=== PATIENT | male | born 1935 | race Caucasian/White ===

== ENCOUNTER → 2016-10-07 | Outpatient (REF) | payer OTHER, MEDICAID ==
[~2016-10-07] MED LIST: /ATOR40TA; /ATOR40TA PO; /CIPR75TA; /TAMS4CA; /WARF25TA; /WARF5TA; ASPI1TAB PO; ASPI325T PO; ASPI81TA60 PO; ASPI81TA83; ASPI81TA85 PO; ATEN25TA; ATOR40TA PO; BABY81CH; CARV25TA PO; CARV3.12 PO; CARV6.25 PO; CIPR500T19; CIPR500T89 PO; COUM1TAB17 PO; COUM2.5T11 PO; DIGO0.12 PO; DIGO0.126; DIGO0.126 OR; FLAG500T; LANO0.1211; LEVA250T; LISI-542 PO; NAME5TAB13 PO; NITR0.4S; NITR4TASL SL; OXYC1TAB23 PO; PERC5TAB6 PO; PLAV75TA2 OR; PRIN5TAB; PRIN5TAB PO; PROS5TAB; TENO50TA; TYLE650T25 PO; XARE15TA PO; XARE20TA PO; ZOLO100T PO
[2016-10-07 19:48] LABS: BASO % 0.4 % (0.0-1.0); EOS # 0.1 K/mm3 (0.0-0.50); EOS % 1.7 % (0.0-3.0); LARGE UNSTAINED CELL % 0.7 % (0.0-4.0); LYMPH # 0.9 K/mm3 (1.5-4.5); LYMPH % 17.2 % (24.0-44.0); MEAN CORPUSCULAR HEMOGLOBIN 30.3 pg (27.0-33.0); MEAN CORPUSCULAR HGB CONC 31.8 g/dl (32.0-36.5); MEAN CORPUSCULAR VOLUME 95.2 fl (80.0-96.0); MONO # 0.4 K/mm3 (0.0-0.8); MONO % 7.5 % (0.0-5.0); NEUTROPHILS # 3.5 K/mm3 (1.8-7.7); NEUTROPHILS % 72.5 % (36.0-66.0); PLATELET COUNT, AUTOMATED 145 k/mm3 (150-450); WHITE BLOOD COUNT 4.9 K/mm3 (4.0-10.0)
[2016-10-07 20:18] LABS: ALBUMIN/GLOBULIN RATIO 1.43 (1.00-1.93); ALKALINE PHOSPHATASE 100 U/L (45-117); ALT/SGPT 13 U/L (12-78); ANION GAP 8 MEQ/L (8-16); AST/SGOT 10 U/L (15-37); BILIRUBIN,TOTAL 0.7 MG/DL (0.2-1.0); BLOOD UREA NITROGEN 17 MG/DL (7-18); CALCIUM LEVEL 8.7 MG/DL (8.8-10.2); CARBON DIOXIDE LEVEL 26 MEQ/L (21-32); CHLORIDE LEVEL 109 MEQ/L (98-107); CHOLESTEROL LEVEL 118 MG/DL (<200); CREATININE FOR GFR 1.14 MG/DL (0.70-1.30); GLOMERULAR FILTRATION RATE > 60.0 (>35); GLUCOSE, FASTING 105 MG/DL (83-110); POTASSIUM SERUM 4.6 MEQ/L (3.5-5.1); SODIUM LEVEL 143 MEQ/L (136-145); TOTAL PROTEIN 6.8 GM/DL (6.4-8.2); TRIGLYCERIDES LEVEL 88 MG/DL (<150)
== END ==
LOC: M LABDRAWC 16:31
PROVIDERS: ATTEND Family Medicine
DX: I25.10 Atherosclerotic heart disease of native coronary artery without angina pectoris (principal); I48.2 Chronic atrial fibrillation; E78.00 Pure hypercholesterolemia, unspecified

== ENCOUNTER → 2016-10-07 | Outpatient (REF) | payer OTHER, MEDICAID ==
[2016-10-07 19:57] LABS: MEAN CORPUSCULAR HEMOGLOBIN 30.1 pg (27.0-33.0); MEAN CORPUSCULAR HGB CONC 31.5 g/dl (32.0-36.5); MEAN CORPUSCULAR VOLUME 95.4 fl (80.0-96.0); WHITE BLOOD COUNT 5.1 K/mm3 (4.0-10.0)
[2016-10-07 20:13] LABS: ALBUMIN 4.1 GM/DL (3.2-5.2); ALBUMIN/GLOBULIN RATIO 1.41 (1.00-1.93); ALKALINE PHOSPHATASE 101 U/L (45-117); ALT/SGPT 12 U/L (12-78); ANION GAP 7 MEQ/L (8-16); AST/SGOT 9 U/L (15-37); BILIRUBIN,TOTAL 0.7 MG/DL (0.2-1.0); BLOOD UREA NITROGEN 17 MG/DL (7-18); CARBON DIOXIDE LEVEL 27 MEQ/L (21-32); CHLORIDE LEVEL 109 MEQ/L (98-107); CHOLESTEROL LEVEL 120 MG/DL (<200); CREATININE FOR GFR 1.14 MG/DL (0.70-1.30); GLOMERULAR FILTRATION RATE > 60.0 (>35); GLUCOSE, FASTING 105 MG/DL (83-110); POTASSIUM SERUM 4.8 MEQ/L (3.5-5.1); SODIUM LEVEL 143 MEQ/L (136-145); TRIGLYCERIDES LEVEL 91 MG/DL (<150)
== END ==
LOC: M LABDRAWC 16:33
PROVIDERS: ATTEND Physician Assistant
DX: I25.10 Atherosclerotic heart disease of native coronary artery without angina pectoris (principal); I48.2 Chronic atrial fibrillation; E78.00 Pure hypercholesterolemia, unspecified; Z85.46 Personal history of malignant neoplasm of prostate

== ENCOUNTER → 2016-10-07 | Outpatient (REF) | payer OTHER, MEDICAID | LOC: M SFHCCLAY 09:39 | PROVIDERS: ATTEND Nurse Practitioner Women's Health | DX: Z85.46 Personal history of malignant neoplasm of prostate (principal) ==

== ENCOUNTER 2017-02-27 08:17 | Observation (INO) | payer OTHER, MEDICAID ==
[~2017-02-27] VITALS: Ht 175.3 cm; Wt 76.6 kg
[~2017-02-27 08:17] MED LIST changes: -ATOR40TA PO; +ATOR40TA75 PO; +CIPR-249 PO; -CIPR500T89 PO; -COUM2.5T11 PO; +COUM2.5T17 PO; +PERC5TAB12 PO; -PERC5TAB6 PO
[2017-02-27] MEDS ORDERED: NAME5TAB13 PO (08:32)
[2017-02-27 09:11] LABS: BASO % 0.5 % (0.0-1.0); LARGE UNSTAINED CELL # 0.1 K/mm3 (0.0-0.4); LARGE UNSTAINED CELL % 1.4 % (0.0-4.0); LYMPH # 0.9 K/mm3 (1.5-4.5); LYMPH % 19.8 % (24.0-44.0); MEAN CORPUSCULAR HEMOGLOBIN 30.7 pg (27.0-33.0); MEAN CORPUSCULAR HGB CONC 32.4 g/dl (32.0-36.5); MEAN CORPUSCULAR VOLUME 94.9 fl (80.0-96.0); MONO # 0.3 K/mm3 (0.0-0.8); MONO % 7.6 % (0.0-5.0); NEUTROPHILS # 3.2 K/mm3 (1.8-7.7); NEUTROPHILS % 69.6 % (36.0-66.0); PLATELET COUNT, AUTOMATED 143 k/mm3 (150-450); RED CELL DISTRIBUTION WIDTH 14.2 % (11.5-14.5); WHITE BLOOD COUNT 4.6 K/mm3 (4.0-10.0)
[2017-02-27 09:37] LABS: ALBUMIN 3.9 GM/DL (3.2-5.2); ALBUMIN/GLOBULIN RATIO 1.26 (1.00-1.93); BILIRUBIN,DIRECT 0.2 MG/DL (0.0-0.2); BILIRUBIN,TOTAL 0.7 MG/DL (0.2-1.0); CALCIUM LEVEL 8.5 MG/DL (8.8-10.2); CREATININE FOR GFR 1.26 MG/DL (0.70-1.30); GLOMERULAR FILTRATION RATE 58.6 (>35); POTASSIUM SERUM 4.5 MEQ/L (3.5-5.1)
[2017-02-27 09:52] LABS: INR 3.3
[2017-02-27] MEDS ORDERED: ASPI81TA85 PO (10:21)
[2017-02-27] MEDS ORDERED: ALBU17IN INH (10:27)
[2017-02-27] MEDS ORDERED: TRIA0.5O TOP (10:27)
[2017-02-27] MEDS ORDERED: CLEA6.5D OU (10:27)
--- NOTE | 2017-02-27 12:22 | REP ---
CT ABDOMEN AND PELVIS WITHOUT IV CONTRAST: CT abdomen and pelvis performed without oral or IV contrast. Sagittal and coronal reconstruction images are performed. Visualized lungs bases demonstrate interstitial fibrotic change. The liver, spleen, adrenals, and pancreas are unremarkable. There is a cyst in the lower pole of each kidney. Intrarenal calculus in the lower pole of the right renal collecting system measures 6 mm in diameter. There is a 5 mm stone in the proximal right ureter with mild right hydronephrosis. IVC filter is noted. There are moderate atherosclerotic calcifications of the abdominal aorta without aneurysm. I see no adenopathy. There is no free air or free fluid. I see no bowel wall thickening. There is a left lower quadrant osteotomy again seen with bowel loops extending into a parastomal hernia as on prior study. I see no pelvic mass. There is a small left inguinal hernia containing fat. There is a Munguia catheter in the urinary bladder which contains air and a tiny amount of fluid. There are two small abdominal wall defects in the midline with fat protruding into the abdominal wall. IMPRESSION: Right ureteral calculus proximally causes mild right hydronephrosis. Intrarenal calculus right kidney. Cyst lower pole or each kidney. No other acute finding. Signed by Audi Oneill MD 02/27/2017 03:15 P
[2017-02-27] MEDS: NS 1,000 ML IV SCH (18:08)
[2017-02-27] MEDS ORDERED: ACETAMINOPHEN TAB 650MG DOSE (2X325MG) PO PRN (18:15)
[2017-02-27] MEDS ORDERED: ALBUTEROL 90 MCG/ACT 8GM HFA INHALER INH PRN (18:15)
[2017-02-27] MEDS ORDERED: PERCOCET 5MG/325MG TAB PO PRN (18:15)
[2017-02-27] MEDS ORDERED: ONDANSETRON 4MG/2ML VIAL (J2405) IV PRN (18:15)
[2017-02-27] MEDS ORDERED: ONDANSETRON 4 MG TAB (S0181) PO PRN (18:15)
[2017-02-27 22:00] VITALS: BP 123/82
--- NOTE | 2017-02-27 22:00 | HPEPDOC ---
Medical History and Physical Date of Admission Feb 27, 2017 at 18:08 History and Physical HISTORY AND PHYSICAL Date of admission: 02/27/2017 PCP: Dr. 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 The patient states that he had been having pure blood from his penis for several days. He denies any recent urologic procedures, as well as any pain with urination, abdominal pain, or back pain. In the emergency department, imaging revealed a right ureteral calculus of 5 mm that was causing mild right hydronephrosis, as well as an intrarenal right calculus. Dr. Jameson saw the patient in the emergency department, and advised Dr. Ulrich that the patient did not need any urologic intervention. The ER had placed a Moon catheter, and his urine was already beginning to clear with placement of the Moon catheter. Of note, the patient takes both aspirin and xarelto. The family is a little unclear on the details of his medical history, but it appears that most likely the Xarelto is for his atrial fibrillation, as he only has a history of one DVT that I am able to tell, and does have an IVC filter in place. The is quite insistent that they have not had any trouble with medications, and it is impossible that he would've taken more aspirin or Xarelto than he should have. Of note, his INR was found to be greater than 3. Past medical history: extensive urologic history including staghorn calculus on the right status post percutaneous nephroureteral stent, BPH status post TURP , prostate cancer status post radiation and resection, history of urinary retention, history of hematuria after cystoscopy, prior cystitis, atrial fibrillation, history of DVT with IVC filter in place, history of colon cancer status post colectomy with colostomy bag in situ since 1994, hypertension, CAD and history of NH status post stent, hyperlipidemia, dementia and depression Past surgical history: Right percutaneous nephroureteral stent in 2014, IVC filter placement, colectomy with resultant colostomy bag in 1994, TURP in 2008, prostate resection, incisional hernia repair, cardiac stent Family history: He reports multiple types of cancer in his immediate family Social history: The patient currently resides with his . He quit smoking more than 20 years ago and does not use any alcohol or drugs. Allergies: No known drug allergies Review of systems: General: Negative for fever and chills Eyes: Negative for vision changes and ocular discharge ENT: Negative for sore throat and nose bleed Cardiovascular: Negative for chest pain and palpitations Respiratory: Positive for chronic cough and chronic shortness of breath GI: Negative for nausea, vomiting, diarrhea, abdominal pain, constipation Musculoskeletal: Positive for chronic back pain Skin: Negative for rash Neuro: Positive for chronic headache, negative for numbness and tingling Psych: Negative for depression and suicidal ideation Endocrine: Negative for polyuria : Negative for dysuria Heme: Positive for hematuria Home meds: See below Physical exam: Vital signs: Vital Sign - Last 24 Hours 02/27/17 02/27/17 02/27/17 02/27/17 08:21 08:52 09:59 10:02 Temp 96.5 Pulse 86 84 Resp 16 B/P (MAP) 107/69 (82) 143/92 (109) Pulse Ox 97 98 O2 Delivery Room Air 02/27/17 02/27/17 02/27/17 02/27/17 10:14 10:17 10:29 10:32 Pulse 82 84 B/P (MAP) 134/78 (96) 153/82 (105) Pulse Ox 98 97 02/27/17 02/27/17 02/27/17 02/27/17 10:44 10:47 10:59 11:02 Pulse 88 86 B/P (MAP) 143/73 (96) 134/75 (94) Pulse Ox 97 96 02/27/17 02/27/17 02/27/17 02/27/17 11:14 11:17 11:32 11:47 Pulse 82 82 90 B/P (MAP) 142/67 (92) Pulse Ox 97 97 97 02/27/17 02/27/17 02/27/17 02/27/17 11:59 12:02 12:14 12:17 Pulse 84 82 B/P (MAP) 133/73 (93) 136/85 (102) Pulse Ox 97 97 02/27/17 02/27/17 02/27/17 02/27/17 12:29 12:32 12:44 12:47 Pulse 80 88 B/P (MAP) 138/91 (107) 134/73 (93) Pulse Ox 98 97 02/27/17 02/27/17 02/27/17 02/27/17 12:59 13:02 13:14 13:17 Pulse 80 84 B/P (MAP) 134/86 (102) 137/95 (109) Pulse Ox 97 97 02/27/17 02/27/17 02/27/17 02/27/17 13:29 13:32 13:44 13:47 Pulse 82 86 B/P (MAP) 137/84 (101) 141/90 (107) Pulse Ox 97 97 02/27/17 02/27/17 02/27/17 02/27/17 13:59 14:02 14:17 14:29 Temp 97.6 Pulse 80 84 Resp 20 B/P (MAP) 148/88 (108) 141/89 (106) Pulse Ox 98 98 02/27/17 02/27/17 02/27/17 02/27/17 14:32 14:44 14:47 14:59 Pulse 82 82 B/P (MAP) 153/76 (101) 144/71 (95) Pulse Ox 97 97 02/27/17 02/27/17 02/27/17 02/27/17 15:02 15:14 15:17 15:29 Pulse 86 82 B/P (MAP) 145/87 (106) 158/90 (112) Pulse Ox 97 97 02/27/17 02/27/17 02/27/17 02/27/17 15:32 15:44 15:46 15:47 Pulse 84 84 B/P (MAP) 148/101 (117) 146/102 (117) Pulse Ox 97 97 02/27/17 02/27/17 02/27/17 02/27/17 15:59 16:02 16:14 16:17 Pulse 88 86 B/P (MAP) 157/97 (117) 158/104 (122) Pulse Ox 96 97 802/27/17 02/27/17 16:29 16:32 19:48 Temp 97.7 Pulse 82 80 Resp 17 B/P (MAP) 158/73 (101) 139/80 (99) Pulse Ox 96 96 O2 Delivery Room Air Gen.: awake, alert, no acute distress Eyes: Extraocular movements intact, normal sclera ENT: Moist mucous membranes Cardiovascular: irregularly irregular Lungs: clear to auscultation bilaterally, no rales, rhonchi, or wheeze Abdomen: Soft, NT/ND, normal BS, no CVA TTP : moon in place with hematuria but not catarino blood Musculoskeletal: normal range of motion Extremities: No peripheral edema Neuro: alert and oriented 3, normal speech, no focal deficits Psych: Normal mood with congruent affect Labs and radiology: See below Hemoglobin 13.3 UA shows blood CMP is unremarkable INR 3.[address] of the abdomen and pelvis shows right ureteral calculus of 5 mm in size with mild right hydronephrosis and an intrarenal right calculus Assessment and plan: 81-year-old male with extensive urologic history including 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 1. Hematuria: I suspect this is secondary to the right ureteral calculus in conjunction with the fact that the patient is on both aspirin and Xarelto. At this time, we will hold his aspirin and Xarelto, and continue the Moon catheter. It appears that his urine is already starting to clear. The patient was evaluated by Dr. Jameson in the emergency department who advised Dr. Ulrich that the patient did not require any urologic procedure or further urologic care. If his hematuria does not resolve, we will certainly call Dr. Jameson again. At this time, his vital signs and hemoglobin are stable, but we will monitor these closely. 2. Ureteral calculus and intrarenal calculus: The patient's ureteral calculus is 5 mm in size, which he should be able to pass. He is not currently experiencing any pain, and his only symptom is the hematuria. We will continue IV fluids, and we'll make pain control available as needed. Again, should the patient develop any further complications, we will not hesitate to call Dr. Jameson again. 3. Chronic kidney disease stage II: The patient's baseline creatinine appears to be in the low ones, and he seems to be at baseline at this time. We will continue to monitor closely given his urologic issues. 4. A. fib: Continue home beta álvaro. We are currently holding the patient's Xarelto and aspirin given his hematuria. 5. History of DVT: The family reports to me that he has only ever had one episode of blood clot in the past. They do confirm that he currently has an IVC filter in place. Given these reports, and his current hematuria, we are holding his home xarelto. 6. Hypertension: Blood pressure is currently well controlled. We will continue his home beta álvaro. 7. CAD and history of NH status post stent, hyperlipidemia: Continue home beta álvaro and statin. We are currently holding his home aspirin given the hematuria. 8. Differential and depression: Continue home Namenda and Zoloft. DVT prophylaxis: SCDs Dispo: placed in observation on the service of Dr. George CODE STATUS: DNR/DNI Vital Signs Vital Signs Date Time Temp Pulse Resp B/P (MAP) Pulse Ox O2 Delivery O2 Flow Rate FiO2 02/27/17 19:48 97.7 80 17 139/80 (99) 96 Room Air Laboratory Data Labs 24H Laboratory Tests 2 02/27/17 08:48: White Blood Count 4.6, Red Blood Count 4.31, Hemoglobin 13.3L, Hematocrit 40.9L , Mean Corpuscular Volume 94.9, Mean Corpuscular Hemoglobin 30.7, Mean Corpuscular Hemoglobin Concent 32.4, Red Cell Distribution Width 14.2, Platelet Count 143L, Neutrophils (%) (Auto) 69.6H, Lymphocytes (%) (Auto) 19.8L, Monocytes (%) (Auto) 7.6H, Eosinophils (%) (Auto) 1.0, Basophils (%) (Auto) 0.5 , Neutrophils # (Auto) 3.2, Lymphocytes # (Auto) 0.9L, Monocytes # (Auto) 0.3, Eosinophils # (Auto) 0.0, Basophils # (Auto) 0.0, Large Unclassified Cells % 1.4 , Large Unclassified Cells # 0.1, Anion Gap 8, Glomerular Filtration Rate 58.6, Calcium Level 8.5L, Aspartate Amino Transf (AST/SGOT) 9L, Alanine Aminotransferase (ALT/SGPT) 14, Alkaline Phosphatase 107, Total Bilirubin 0.7, Direct Bilirubin 0.2, Total Protein 7.0, Albumin 3.9, Albumin/Globulin Ratio 1.26, Lipase 199 02/27/17 08:49: Urine Appearance CLOUDYH, Urine Color REDH, Urine pH 6.0, Urine Specific [place] 1.019, Urine Protein 2+H, Urine Glucose (UA) NEGATIVE, Urine Ketones NEGATIVE, Urine Urobilinogen 0.2, Urine Bilirubin NEGATIVE, Urine Leukocyte Esterase NEGATIVE, Urine Blood 2+H, Urine Nitrite NEGATIVE, Urine WBC (Auto) 8H , Urine RBC (Auto) TNTCH, Urine Hyaline Casts (Auto) 0, Urine Bacteria (Auto) NEGATIVE, Urine Squamous Epithelial Cells 0, Urine Sperm (Auto) 02/27/17 09:20: Prothrombin Time 35.1H, Prothromb Time International Ratio 3.30 CBC/BMP Laboratory Tests 02/27/17 08:48 Red Blood Count 4.31, Mean Corpuscular Volume 94.9, Mean Corpuscular Hemoglobin 30.7, Mean Corpuscular Hemoglobin Concent 32.4, Red Cell Distribution Width 14.2 , Neutrophils (%) (Auto) 69.6 H, Lymphocytes (%) (Auto) 19.8 L, Monocytes (%) ( Auto) 7.6 H, Eosinophils (%) (Auto) 1.0, Basophils (%) (Auto) 0.5, Neutrophils # (Auto) 3.2, Lymphocytes # (Auto) 0.9 L, Monocytes # (Auto) 0.3, Eosinophils # (Auto) 0.0, Basophils # (Auto) 0.0 Microbiology Microbiology 02/27/17 Urine Culture, Received Pending Home Medications Scheduled Aspirin (Aspir-81) 81 Mg Tab, 81 MG PO DAILY Atorvastatin Calcium (Atorvastatin Calcium) 40 Mg Tab, 40 MG PO QHS Carvedilol (Carvedilol) 25 Mg Tab, 25 MG PO BID Memantine (Namenda) 5 Mg Tab, 10 MG PO BID Rivaroxaban (Xarelto) 20 Mg Tab, 20 MG PO DAILY Sertraline Hcl (Zoloft) 100 Mg Tab, 100 MG PO QHS Triamcinolone Acetonide (Triamcinolone Acetonide) 0.5 % Oin, 1 DOSE TOP DAILYPRN TO HANDS Scheduled PRN (Clear Eyes Natural Tears 5-6 mg/ml) 1 Delroy Delroy, 1 DELROY OU QID PRN for DRY EYES Albuterol Sulfate (Ventolin Hfa) 200 Puff/8 Gm Aers, 2 PUFF INH Q4H PRN for SOB/ WHEEZING Nitroglycerin (Nitrostat) 0.4 Mg Subl, 0.4 MG SL PRN PRN for CHEST PAIN Allergies Coded Allergies: No Known Drug Allergy (Verified Allergy, Unknown, 10/05/12) KAYLYN HDEZ Feb 27, 2017 22:00
[2017-02-27] MEDS: ATORVASTATIN 20 MG TAB PO SCH (22:25)
[2017-02-27] MEDS: MEMANTINE 5MG TABLET (NAMENDA) PO SCH (22:25)
[2017-02-27] MEDS: CARVedilol 12.5 MG TAB PO SCH (22:26)
[2017-02-27] MEDS: SERTRALINE 100 MG TAB PO SCH (22:26)
[2017-02-28 06:00] VITALS: BP 132/82
[2017-02-28 06:33] LABS: BASO % 0.3 % (0.0-1.0); EOS # 0.1 K/mm3 (0.0-0.50); EOS % 0.9 % (0.0-3.0); LYMPH # 0.9 K/mm3 (1.5-4.5); LYMPH % 13.9 % (24.0-44.0); MEAN CORPUSCULAR HEMOGLOBIN 31.4 pg (27.0-33.0); MEAN CORPUSCULAR HGB CONC 33.6 g/dl (32.0-36.5); MEAN CORPUSCULAR VOLUME 93.4 fl (80.0-96.0); MONO # 0.4 K/mm3 (0.0-0.8); MONO % 6.1 % (0.0-5.0); NEUTROPHILS # 4.7 K/mm3 (1.8-7.7); NEUTROPHILS % 77.7 % (36.0-66.0); PLATELET COUNT, AUTOMATED 121 k/mm3 (150-450); RED CELL DISTRIBUTION WIDTH 14.2 % (11.5-14.5); WHITE BLOOD COUNT 6.1 K/mm3 (4.0-10.0)
[2017-02-28 06:34] LABS: LARGE UNSTAINED CELL # 0.1 K/mm3 (0.0-0.4)
[2017-02-28 06:38] LABS: INR 1.58
[2017-02-28 06:48] LABS: ANION GAP 8 MEQ/L (8-16); BLOOD UREA NITROGEN 15 MG/DL (7-18); CALCIUM LEVEL 8.6 MG/DL (8.8-10.2); CARBON DIOXIDE LEVEL 26 MEQ/L (21-32); CHLORIDE LEVEL 109 MEQ/L (98-107); GLOMERULAR FILTRATION RATE > 60.0 (>35); GLUCOSE, FASTING 98 MG/DL (83-110); MAGNESIUM LEVEL 2.1 MG/DL (1.8-2.4); POTASSIUM SERUM 4.5 MEQ/L (3.5-5.1); SODIUM LEVEL 143 MEQ/L (136-145)
[2017-02-28] MEDS: NS 1,000 ML IV SCH (07:43)
[2017-02-28] MEDS: MEMANTINE 5MG TABLET (NAMENDA) PO SCH ×2 (08:59→21:45)
[2017-02-28] MEDS: CARVedilol 12.5 MG TAB PO SCH ×2 (08:59→21:46)
--- NOTE | 2017-02-28 10:22 | ECGEPIP ---
Stationary ECG Study [facility] - ED Test Date: 2017-02-27 Pat Name: CLARISA MOORE Department: Room: - Gender: M Glass Technician: rubén : [id number] Requested By: Kimberley Mendieta Order Number: [id number] Reading MD: Kimberley Mendieta Measurements Intervals [place] Rate: 85 P: TN: 0 QRS: -13 QRSD: 101 T: -10 QT: 380 QTc: 454 Interpretive Statements ATRIAL FIBRILLATION LOW QRS VOLTAGE IN EXTREMITY LEADS MINIMAL ST DEPRESSION ABNORMAL RHYTHM ECG DECREASED RATE 05/18/16 Electronically Signed On 02-28-2017 10:21:43 EDT by Kimberley Mendieta
[2017-02-28 14:00] VITALS: BP 103/57
--- NOTE | 2017-02-28 16:07 | IPNPDOC ---
Subjective Date Seen The patient was seen on 02/28/17. Subjective Chief Complaint/HPI Patient seen and examined at the bedside. Reports that he is still having blood in his Munguia catheter, but notes it is significantly clearer than it was before coming to the hospital. Denies any other acute complaints at this time. Objective Physical Examination General Exam: Positive: Alert, Cooperative, No Acute Distress ENT Exam: Positive: Atraumatic, Mucous membr. moist/pink Neck Exam: Negative: JVD Chest Exam: Positive: Clear to auscultation, Normal air movement Heart Exam: Positive: Rate Normal, Normal S1, Normal S2 Abdomen Exam: Positive: Soft, Negative: Tenderness Extremity Exam: Negative: Tenderness, Swelling Other physical findings Munguia Catheter draining bright, fruit-punch colored urine Assessment /Plan Plan/VTE VTE Prophylaxis Ordered?: Yes Plan/Urinary Catheter Reason for insertion/continuin: Acute obstruct/retention Plan Hematuria likely 2/2 Right Ureteral Calculus Also compounded by Aspirin and Xarelto use--these medications have been held since admission Munguia Catheter still draining bright, punch colored urine--however the patient states that this has significantly cleared compared to before Hgb and blood pressure stable here Urology consulted in the ER-->No urologic intervention indicated at this time We will cont to monitor the patient's H&H serially If the patient continues to have bloody output, we will reach out to Urology once again Right Sided Ureteral calculus and intrarenal calculus Mild Right Hydronephrosis noted, Renal function stable Patient comfortable and without acute pain No intervention indicated at this time as per Urology WBC wnl, afebrile The patient will be treated symptomatically for now We will cont to monitor the patient Chronic kidney disease stage II Serum Cr at baseline Atrial Fibrillation, stable Rate controlled with beta álvaro. ASA, Xarelto on hold 2/2 above Hx of CAD, CT s/p Stent placement Cont Coreg, Statin ASA on hold 2/2 above History of DVT, with Hx of IVC Filter Xarelto on hold 2/2 above Hypertension, controlled. Cont Coreg Dyslipidemia Continue statin Depression Cont Zoloft Hx of Dementia Cont Namenda DVT Prophylaxis SCD/TEDs VS, I&O, 24H, Fishbone Vital Signs/I&O Vital Signs Date Time Temp Pulse Resp B/P (MAP) Pulse Ox O2 Delivery O2 Flow Rate FiO2 8/25/17 08:59 77 132/82 02/28/17 06:00 96.5 18 97 Room Air I&O- Last 24 Hours up to 6 AM 02/28/17 06:00 Intake Total 800 ml Output Total 2025 ml Balance -1225 ml Laboratory Data 24H LABS Laboratory Tests 2 02/28/17 05:57: White Blood Count 6.1, Red Blood Count 4.02L, Hemoglobin 12.6L, Hematocrit 37.6L , Mean Corpuscular Volume 93.4, Mean Corpuscular Hemoglobin 31.4, Mean Corpuscular Hemoglobin Concent 33.6, Red Cell Distribution Width 14.2, Platelet Count 121L, Neutrophils (%) (Auto) 77.7H, Lymphocytes (%) (Auto) 13.9L, Monocytes (%) (Auto) 6.1H, Eosinophils (%) (Auto) 0.9, Basophils (%) (Auto) 0.3 , Neutrophils # (Auto) 4.7, Lymphocytes # (Auto) 0.9L, Monocytes # (Auto) 0.4, Eosinophils # (Auto) 0.1, Basophils # (Auto) 0.0, Large Unclassified Cells % 1.0 , Large Unclassified Cells # 0.1, Prothrombin Time 19.3H, Prothromb Time International Ratio 1.58, Anion Gap 8, Glomerular Filtration Rate > 60.0, Blood Urea Nitrogen 15, Creatinine 1.00, Sodium Level 143, Potassium Level 4.5, Chloride Level 109H, Carbon Dioxide Level 26, Calcium Level 8.6L, Magnesium Level 2.1 CBC/BMP Laboratory Tests 02/28/17 05:57 Red Blood Count 4.02 L, Mean Corpuscular Volume 93.4, Mean Corpuscular Hemoglobin 31.4, Mean Corpuscular Hemoglobin Concent 33.6, Red Cell Distribution Width 14.2, Neutrophils (%) (Auto) 77.7 H, Lymphocytes (%) (Auto) 13.9 L, Monocytes (%) (Auto) 6.1 H, Eosinophils (%) (Auto) 0.9, Basophils (%) ( Auto) 0.3, Neutrophils # (Auto) 4.7, Lymphocytes # (Auto) 0.9 L, Monocytes # ( Auto) 0.4, Eosinophils # (Auto) 0.1, Basophils # (Auto) 0.0, Calcium Level 8.6 L Microbiology Microbiology 02/27/17 Urine Culture - Final, Complete MARK CONSTANTINO MD Feb 28, 2017 16:07
[2017-02-28] MEDS: ATORVASTATIN 20 MG TAB PO SCH (21:45)
[2017-02-28] MEDS: SERTRALINE 100 MG TAB PO SCH (21:46)
--- NOTE | 2017-02-28 22:04 | CR ---
DATE OF CONSULTATION: 02/27/2017 [employer] MANAGER: Kimberley Fishman, emergency department [facility]. REASON FOR CONSULTATION: Hematuria, plus right hydronephrosis on 5 mm proximal ureteral stone. HISTORY OF PRESENT ILLNESS: This is an 81-year-old male patient that has come to the emergency department at [facility] due to hematuria this morning. The patient has no flank pain, no abdominal pain. For this reason a Munguia catheter was inserted, which actually brought catarino gross hematuria. The patient is on Xarelto. His INR is above 3. He has a history of atrial fibrillation and he has an inferior vena cava (IVC) filter also. CT briceno of the abdomen and pelvis was ordered, which actually confirmed a 5 mm stone in the proximal right ureter with mild right hydronephrosis. No stranding. No signs of infection. He has a cyst in the lower pole of each kidney also. An intrarenal calculus of right kidney also. Of note, the patient has a past medical history of prostate cancer treated with XRT. He also has a history of colon cancer treated with APR and colostomy. He also is on CIC every 8 hours due to neurogenic bladder after the APR. His last PSA was at 0.039 grams per milliliter back in October 2016. He has a history of having had two PCNLs done in the right kidney for staghorn stones and he has been doing well until this moment in time in which CT scan actually found incidental finding of 5 mm stone and mild right hydronephrosis and hematuria possibly due to elevated INR and Xarelto. The patient takes Xarelto due to atrial fibrillation. Has a history of deep vein thrombosis (DVT) and he has inferior vena cava (IVC) filter. PHYSICAL EXAMINATION: He is awake, oriented times three. He is not in any pain at all. Flank percussion is negative. Abdominal palpation is negative for any pain. Munguia catheter in good position draining hematuric urine. Testicles are within normal limits. No pain. No masses. IMPRESSION AND PLAN: This is a patient with anticoagulation therapy due to atrial fibrillation on Xarelto. His INR is above 3. He has gross hematuria possibly due to a 5 mm stone. He has mild hydronephrosis on the right kidney. PLAN: At this moment in time the patient has no pain. No signs and symptoms of infection. For this reason for the stone, we will actively do a medical expulsive therapy with Flomax 0.4 mg one tablet a day for 30 days. Percocet 5/325 mg one every 8 hours to 6 hours as needed for pain if needed. Increase water intake to 2 to 3 liters a day. He will followup at [facility] in three to four weeks with a CT scan of abdomen and pelvis noncontrast. Since the patient has increased INR on Xarelto, he should stop the Xarelto anticoagulation medication. The recommendation is that he should be hospitalized by the hospitalist service until he gets hydrated and the anticoagulation therapy weans off from the body and his urine is completely clear. He will remain with the Munguia catheter since he has neurogenic bladder and he is on CIC every [address] the Munguia catheter to gravity. He will need antibiotic prophylaxis such as Ciprofloxacin 500 mg twice a day while he is on Munguia catheter. Thank you very much. We will follow the patient in the hospital when he is admitted. AMY
[2017-03-01 06:00] VITALS: BP 118/74
[2017-03-01 06:01] LABS: BASO % 0.3 % (0.0-1.0); EOS # 0.1 K/mm3 (0.0-0.50); EOS % 1.3 % (0.0-3.0); LARGE UNSTAINED CELL # 0.1 K/mm3 (0.0-0.4); LARGE UNSTAINED CELL % 2.2 % (0.0-4.0); LYMPH # 1.2 K/mm3 (1.5-4.5); LYMPH % 18.7 % (24.0-44.0); MEAN CORPUSCULAR HEMOGLOBIN 30.4 pg (27.0-33.0); MEAN CORPUSCULAR HGB CONC 32.4 g/dl (32.0-36.5); MEAN CORPUSCULAR VOLUME 93.9 fl (80.0-96.0); MONO # 0.4 K/mm3 (0.0-0.8); MONO % 6.1 % (0.0-5.0); NEUTROPHILS # 4.1 K/mm3 (1.8-7.7); NEUTROPHILS % 71.4 % (36.0-66.0); PLATELET COUNT, AUTOMATED 122 k/mm3 (150-450); RED CELL DISTRIBUTION WIDTH 14.3 % (11.5-14.5); WHITE BLOOD COUNT 5.8 K/mm3 (4.0-10.0)
[2017-03-01 06:12] LABS: INR 1.22
[2017-03-01 06:18] LABS: ANION GAP 9 MEQ/L (8-16); BLOOD UREA NITROGEN 13 MG/DL (7-18); CALCIUM LEVEL 8.4 MG/DL (8.8-10.2); CARBON DIOXIDE LEVEL 26 MEQ/L (21-32); CHLORIDE LEVEL 111 MEQ/L (98-107); CREATININE FOR GFR 0.98 MG/DL (0.70-1.30); GLOMERULAR FILTRATION RATE > 60.0 (>35); GLUCOSE, FASTING 108 MG/DL (83-110); MAGNESIUM LEVEL 2.1 MG/DL (1.8-2.4); POTASSIUM SERUM 4.3 MEQ/L (3.5-5.1); SODIUM LEVEL 146 MEQ/L (136-145)
[2017-03-01] MEDS: MEMANTINE 5MG TABLET (NAMENDA) PO SCH (08:33)
[2017-03-01 08:34] VITALS: BP 116/64
[2017-03-01] MEDS: CARVedilol 12.5 MG TAB PO SCH (08:34)
--- NOTE | 2017-03-01 09:45 | IPNPDOC ---
Assessment/Plan Date Seen The patient was seen on 03/01/17. Plan/VTE VTE Prophylaxis Ordered?: Yes Plan/Urinary Catheter Reason for insertion/continuin: Acute obstruct/retention Subjective Review oF Systems Chief Complaint The patient is a 81-year-old male admitted with a reason for visit of hematuria ; coagulopathy; right ureter 5mm stone; RLP 6mm stone; NGB (urinary retention); AFIB; IVC filter; CaP s/p XRT; colon cancer s/p APR/colostomy. Munguia clear. Xeralto/ASA held (02/27/17). Asymptomatic. Tolerate po. Comfortable. 86, 18, 116/64, 97.9f. Abdo: Benign. Munguia clear. Urinalysis (02/27/17) rbc+2, pH 6.0. Urine culture (02/27/17) negative. () Hg 11.7, wbc 5.8, Cr .98, INR 1.2. CT (02/27/17) w/o IV right ureter 5mm stone; RLP 6mm stone; BLP B1 cysts; IVC filter. A: Above. P: CIC 4-6/day to keep catheterized volumes <300cc per catheterization. Flomax. Cipro. Strain urine. Cardiology clearance prior to elective Urologic intervention. If dc home, f/u Trino KUB/OV 1 week. Objective Physical Examination Heart Exam: Positive: Rate Normal, Normal S1, Normal S2 Vital Signs/I&O Vital Signs Date Time Temp Pulse Resp B/P (MAP) Pulse Ox O2 Delivery O2 Flow Rate FiO2 03/01/17 08:34 86 116/64 03/01/17 06:00 97.9 18 96 Room Air I&O- Last 24 Hours up to 6 AM 03/01/17 06:00 Intake Total 2860 ml Output Total 1500 ml Balance 1360 ml Laboratory Data Labs 24H Laboratory Tests 2 03/01/17 05:41: White Blood Count 5.8, Red Blood Count 3.87L, Hemoglobin 11.7L, Hematocrit 36.3L , Mean Corpuscular Volume 93.9, Mean Corpuscular Hemoglobin 30.4, Mean Corpuscular Hemoglobin Concent 32.4, Red Cell Distribution Width 14.3, Platelet Count 122L, Neutrophils (%) (Auto) 71.4H, Lymphocytes (%) (Auto) 18.7L, Monocytes (%) (Auto) 6.1H, Eosinophils (%) (Auto) 1.3, Basophils (%) (Auto) 0.3 , Neutrophils # (Auto) 4.1, Lymphocytes # (Auto) 1.2L, Monocytes # (Auto) 0.4, Eosinophils # (Auto) 0.1, Basophils # (Auto) 0.0, Large Unclassified Cells % 2.2 , Large Unclassified Cells # 0.1, Prothrombin Time 15.6H, Prothromb Time International Ratio 1.22, Anion Gap 9, Glomerular Filtration Rate > 60.0, Blood Urea Nitrogen 13, Creatinine 0.98, Sodium Level 146H, Potassium Level 4.3, Chloride Level 111H, Carbon Dioxide Level 26, Calcium Level 8.4L, Magnesium Level 2.1 CBC/BMP Laboratory Tests 02/28/17 16:27 03/01/17 05:41 Red Blood Count 3.87 L, Mean Corpuscular Volume 93.9, Mean Corpuscular Hemoglobin 30.4, Mean Corpuscular Hemoglobin Concent 32.4, Red Cell Distribution Width 14.3, Neutrophils (%) (Auto) 71.4 H, Lymphocytes (%) (Auto) 18.7 L, Monocytes (%) (Auto) 6.1 H, Eosinophils (%) (Auto) 1.3, Basophils (%) ( Auto) 0.3, Neutrophils # (Auto) 4.1, Lymphocytes # (Auto) 1.2 L, Monocytes # ( Auto) 0.4, Eosinophils # (Auto) 0.1, Basophils # (Auto) 0.0, Calcium Level 8.4 L Microbiology Microbiology 02/27/17 Urine Culture - Final, Complete HUNTER ANGLIN MD Mar 01, 2017 09:45
[2017-03-01] MEDS ORDERED: XARE15TA PO (11:29)
[2017-03-01] MEDS ORDERED: CIPR-249 PO (11:34)
[2017-03-01 14:00] VITALS: BP 124/80
--- NOTE | 2017-03-01 16:24 | DS.PDOC ---
Discharge Summary General Date of Admission Feb 27, 2017 at 18:08 Date of Discharge 03/01/17 Specialist/Consultants Involve Dr. Jameson, Dr. Juan of Urology. Dr. Cheng of Cardiology Discharge Summary PROCEDURES PERFORMED DURING STAY: None. ADMITTING/DISCHARGE DIAGNOSES: Hematuria likely 2/2 Right Ureteral Calculus Right Sided Ureteral calculus and intrarenal calculus Chronic kidney disease stage II Atrial Fibrillation Hx of CAD, [place] s/p Stent placement History of DVT, with Hx of IVC Filter COMPLICATIONS/CHIEF COMPLAINT: Hematuria,Renal Calculus. HISTORY OF PRESENT ILLNESS: . 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 The patient reported that he was having bright red blood in his urine for several days prior to his presentation to the ER. He denied any trauma, pain with urination, fevers, or any flank pain. In the ER, the patient had imaging which revealed a right ureteral calculus a 5 mm that was causing mild right hydronephrosis as well as an intrarenal right calculus. The patient was admitted to the hospitalist service for further evaluation and management. Urology was also consulted. During hospitalization, the patient's Xarelto and aspirin were held. Over the next 48 hours the patient's urine significantly cleared to a normal yellow/ clear color. The patient was seen by urology and there were no indications for any urologic intervention at this time. The patient's hemoglobin and blood pressure has remained stable here. I did discuss anticoagulation with the patient's offender employment specialist, Dr. Cheng. He has recommended that we discontinue the patient's aspirin. In addition, the patient's Xarelto dose has been decreased to 15 mg daily from 20. I did discuss these findings and medication changes with the patient's and daughter, as well as the patient extensively at bedside. They have verbalized understanding of the findings and changes. I've advised the patient and his family to closely monitor for any more signs of hematuria, or for any signs of fever, flank pain, dysuria. Should the patient have a return of hematuria he has been advised to return to the ER for further evaluation and management. I asked the patient to follow-up with his primary care physician within one week, urology in 2 weeks, and cardiology in 2 weeks. All questions were answered to the patient and family's satisfaction. DISCHARGE MEDICATIONS: Please see below. ALLERGIES: Please see below. PHYSICAL EXAMINATION ON DISCHARGE: VITAL SIGNS: Please see below. General Exam: Positive: Alert, Cooperative, No Acute Distress ENT Exam: Positive: Atraumatic, Mucous membr. moist/pink Neck Exam: Negative: JVD Chest Exam: Positive: Clear to auscultation, Normal air movement Heart Exam: Positive: Rate Normal, Normal S1, Normal S2 Abdomen Exam: Positive: Soft, Negative: Tenderness Extremity Exam: Negative: Tenderness, Swelling Other physical findings Munguia Catheter draining yellow/clear colored urine LABORATORY DATA: Please see below. IMAGING: CT ABDOMEN AND PELVIS WITHOUT IV CONTRAST: CT abdomen and pelvis performed without oral or IV contrast. Sagittal and coronal reconstruction images are performed. Visualized lungs bases demonstrate interstitial fibrotic change. The liver, spleen, adrenals, and pancreas are unremarkable. There is a cyst in the lower pole of each kidney. Intrarenal calculus in the lower pole of the right renal collecting system measures 6 mm in diameter. There is a 5 mm stone in the proximal right ureter with mild right hydronephrosis. IVC filter is noted. There are moderate atherosclerotic calcifications of the abdominal aorta without aneurysm. I see no adenopathy. There is no free air or free fluid. I see no bowel wall thickening. There is a left lower quadrant osteotomy again seen with bowel loops extending into a parastomal hernia as on prior study. I see no pelvic mass. There is a small left inguinal hernia containing fat. There is a Munguia catheter in the urinary bladder which contains air and a tiny amount of fluid. There are two small abdominal wall defects in the midline with fat protruding into the abdominal wall. IMPRESSION: Right ureteral calculus proximally causes mild right hydronephrosis. Intrarenal calculus right kidney. Cyst lower pole or each kidney. No other acute finding. PROGNOSIS: Fair ACTIVITY: As tolerated. DIET: . 2 g low-sodium diet DISCHARGE PLAN: DISPOSITION: . Home DISCHARGE INSTRUCTIONS: 1. . Follow up with primary care physician within one week, urology 2 weeks, cardiology 2 weeks 2. . Complete course of antibiotic 3. . Return to the ER for any acute emergencies as discussed DISCHARGE CONDITION: Stable. TIME SPENT ON DISCHARGE: Greater than 30 minutes. Vital Signs/I&Os Vital Signs Date Time Temp Pulse Resp B/P (MAP) Pulse Ox O2 Delivery O2 Flow Rate FiO2 03/01/17 14:00 98.2 87 18 124/80 (95) 94 Room Air I&O- Last 24 Hours up to 6 AM 03/01/17 05:59 Intake Total 2380 ml Output Total 1800 ml Balance 580 ml Laboratory Data Labs 24H Laboratory Tests 2 03/01/17 05:41: White Blood Count 5.8, Red Blood Count 3.87L, Hemoglobin 11.7L, Hematocrit 36.3L , Mean Corpuscular Volume 93.9, Mean Corpuscular Hemoglobin 30.4, Mean Corpuscular Hemoglobin Concent 32.4, Red Cell Distribution Width 14.3, Platelet Count 122L, Neutrophils (%) (Auto) 71.4H, Lymphocytes (%) (Auto) 18.7L, Monocytes (%) (Auto) 6.1H, Eosinophils (%) (Auto) 1.3, Basophils (%) (Auto) 0.3 , Neutrophils # (Auto) 4.1, Lymphocytes # (Auto) 1.2L, Monocytes # (Auto) 0.4, Eosinophils # (Auto) 0.1, Basophils # (Auto) 0.0, Large Unclassified Cells % 2.2 , Large Unclassified Cells # 0.1, Prothrombin Time 15.6H, Prothromb Time International Ratio 1.22, Anion Gap 9, Glomerular Filtration Rate > 60.0, Blood Urea Nitrogen 13, Creatinine 0.98, Sodium Level 146H, Potassium Level 4.3, Chloride Level 111H, Carbon Dioxide Level 26, Calcium Level 8.4L, Magnesium Level 2.1 CBC/BMP Laboratory Tests 02/28/17 16:27 03/01/17 05:41 Red Blood Count 3.87 L, Mean Corpuscular Volume 93.9, Mean Corpuscular Hemoglobin 30.4, Mean Corpuscular Hemoglobin Concent 32.4, Red Cell Distribution Width 14.3, Neutrophils (%) (Auto) 71.4 H, Lymphocytes (%) (Auto) 18.7 L, Monocytes (%) (Auto) 6.1 H, Eosinophils (%) (Auto) 1.3, Basophils (%) ( Auto) 0.3, Neutrophils # (Auto) 4.1, Lymphocytes # (Auto) 1.2 L, Monocytes # ( Auto) 0.4, Eosinophils # (Auto) 0.1, Basophils # (Auto) 0.0, Calcium Level 8.4 L Microbiology Microbiology 02/27/17 Urine Culture - Final, Complete Discharge Medications Scheduled Atorvastatin Calcium (Atorvastatin Calcium) 40 Mg Tab, 40 MG PO QHS, (Reported) Carvedilol (Carvedilol) 25 Mg Tab, 25 MG PO BID, (Reported) Ciprofloxacin HCl (Cipro) 500 Mg Tab, 500 MG PO BID Memantine (Namenda) 5 Mg Tab, 10 MG PO BID, (Reported) Rivaroxaban (Xarelto) 15 Mg Tab, 15 MG PO DAILY Sertraline Hcl (Zoloft) 100 Mg Tab, 100 MG PO QHS, (Reported) Triamcinolone Acetonide (Triamcinolone Acetonide) 0.5 % Oin, 1 DOSE TOP DAILYPRN , (Reported) TO HANDS Scheduled PRN (Clear Eyes Natural Tears 5-6 mg/ml) 1 Marline Marline, 1 MARLINE OU QID PRN for DRY EYES, (Reported) Albuterol Sulfate (Ventolin Hfa) 200 Puff/8 Gm Aers, 2 PUFF INH Q4H PRN for SOB/ WHEEZING, (Reported) Nitroglycerin (Nitrostat) 0.4 Mg Subl, 0.4 MG SL PRN PRN for CHEST PAIN, ( Reported) Allergies Coded Allergies: No Known Drug Allergy (Verified Allergy, Unknown, 10/05/12) MARK CONSTANTINO MD Mar 01, 2017 16:24
[2017-04-10] MEDS ORDERED: LISI-542 PO (13:39)
== END 2017-03-01 17:56 | disposition home or self-care (01) ==
LOC: M ED 08:17 → M ED INP 18:08 → M MSPAV 19:57
PROVIDERS: ADMIT Hospitalist; ATTEND Internal Medicine
DX: R31.9 Hematuria, unspecified (principal); N20.1 Calculus of ureter; N18.2 Chronic kidney disease, stage 2 (mild); I48.91 Unspecified atrial fibrillation; I25.10 Atherosclerotic heart disease of native coronary artery without angina pectoris; Z98.61 Coronary angioplasty status; Z86.79 Personal history of other diseases of the circulatory system; N40.0 Benign prostatic hyperplasia without lower urinary tract symptoms; Z92.3 Personal history of irradiation; Z85.46 Personal history of malignant neoplasm of prostate; Z85.038 Personal history of other malignant neoplasm of large intestine; Z79.01 Long term (current) use of anticoagulants; Z79.82 Long term (current) use of aspirin; Z79.899 Other long term (current) drug therapy; Z87.891 Personal history of nicotine dependence; F32.9 Major depressive disorder, single episode, unspecified
CPT/HCPCS: 36415; 74176; 80048; 80076; 81001; 83690; 83735; 85014; 85018; 85025; 85610; 86850; 86900; 86901; 87086; 93005; 93041; 99285; G0378

== ENCOUNTER → 2017-03-07 | Outpatient (REF) | payer OTHER, MEDICAID ==
[~2017-03-07] MED LIST changes: +ALBU17IN INH; +CLEA6.5D OU; +TRIA0.5O TOP
== END ==
LOC: M SMT 08:34
PROVIDERS: ATTEND Nurse Practitioner Women's Health
DX: N13.2 Hydronephrosis with renal and ureteral calculous obstruction (principal)

== ENCOUNTER → 2017-03-07 | Outpatient (CLI) | payer OTHER, MEDICAID ==
[2017-03-07 13:56] LABS: MEAN CORPUSCULAR HEMOGLOBIN 31.3 pg (27.0-33.0); MEAN CORPUSCULAR VOLUME 94.8 fl (80.0-96.0); RED CELL DISTRIBUTION WIDTH 13.9 % (11.5-14.5); WHITE BLOOD COUNT 5.7 K/mm3 (4.0-10.0)
[2017-03-07 14:06] LABS: CALCIUM LEVEL 9.1 MG/DL (8.8-10.2); CREATININE FOR GFR 1.33 MG/DL (0.70-1.30); GLOMERULAR FILTRATION RATE 55.1 (>35); POTASSIUM SERUM 4.6 MEQ/L (3.5-5.1)
--- NOTE | 2017-03-07 15:37 | REP ---
KUB, ONE VIEW: HISTORY: Ureteral stone. COMPARISON: 06/18/2015 Calcification is present overlying the right kidney consistent with nephrolithiasis. An 8 mm calcification is present along the right lateral aspect of the L4 vertebral body. This corresponds to the ureteral calculus on other recent CT abdomen examination. An IVC filter is present. Surgical clips are present in the pelvis. IMPRESSION: 1. Right nephrolithiasis. 2. There is an 8 mm calcification along the right lateral aspect of the L4 vertebral body likely corresponding to the ureteral calculus seen in the recent CT examination. Signed by Gerardo Swenson MD 03/07/2017 03:39 P
== END ==
LOC: M SMT 08:48
PROVIDERS: ATTEND Nurse Practitioner Women's Health
DX: N13.2 Hydronephrosis with renal and ureteral calculous obstruction (principal)
CPT/HCPCS: 36415; 74000; 80048; 81001; 85027; 87086; G0463

== ENCOUNTER → 2017-04-08 | Outpatient (CLI) | payer OTHER, MEDICAID ==
--- NOTE | 2017-04-08 10:23 | REP ---
PA and lateral chest: Comparison is 05/18/2016. The lung alvarado are clear and unchanged. Cardiac size is upper normal, unchanged. The arabella, mediastinum, and bony thorax are unremarkable. Impression: Negative PA and lateral chest. There is no interval change.
== END ==
LOC: M CLY 09:00
PROVIDERS: ATTEND Nurse Practitioner Women's Health
DX: Z01.812 Encounter for preprocedural laboratory examination (principal); N13.2 Hydronephrosis with renal and ureteral calculous obstruction; I25.10 Atherosclerotic heart disease of native coronary artery without angina pectoris; F02.80 Dementia in other diseases classified elsewhere, unspecified severity, without behavioral disturbance, psychotic disturbance, mood disturbance, and anxiety

== ENCOUNTER → 2017-04-08 | Outpatient (REF) | payer OTHER, MEDICAID ==
[2017-04-08 11:39] LABS: BASO % 0.3 % (0.0-1.0); EOS # 0.1 10^3/uL (0.0-0.50); EOS % 0.7 % (0.0-3.0); IMMATURE GRANULOCYTE % 0.3 % (0-0); LYMPH % 14.2 % (24.0-44.0); MEAN CORPUSCULAR HEMOGLOBIN 30.4 pg (27.0-33.0); MEAN CORPUSCULAR HGB CONC 31.9 g/dl (32.0-36.5); MEAN CORPUSCULAR VOLUME 95.5 fl (80.0-96.0); MONO # 0.7 10^3/uL (0.0-0.8); MONO % 9.5 % (0.0-5.0); NEUTROPHILS # 5.4 10^3/uL (1.8-7.7); PLATELET COUNT, AUTOMATED 165 10^3/uL (150-450); RED CELL DISTRIBUTION WIDTH 13.7 % (11.5-14.5); WHITE BLOOD COUNT 7.2 10^3/uL (4.0-10.0)
[2017-04-08 11:40] LABS: ADD MANUAL DIFFER NO; DIFF SLIDE NUMBER 214
[2017-04-08 12:33] LABS: FOLATE 6.7 NG/ML
[2017-04-08 22:32] LABS: ALBUMIN 3.6 GM/DL (3.2-5.2); ALBUMIN/GLOBULIN RATIO 1.24 (1.00-1.93); BILIRUBIN,TOTAL 0.8 MG/DL (0.2-1.0); CALCIUM LEVEL 8.3 MG/DL (8.8-10.2); CREATININE FOR GFR 1.51 MG/DL (0.70-1.30); GLOMERULAR FILTRATION RATE 47.6 (>35); POTASSIUM SERUM 4.2 MEQ/L (3.5-5.1); TOTAL PROTEIN 6.5 GM/DL (6.4-8.2)
== END ==
LOC: M LABDRAWC 11:19
PROVIDERS: ATTEND Family Medicine
DX: I25.10 Atherosclerotic heart disease of native coronary artery without angina pectoris (principal); F02.80 Dementia in other diseases classified elsewhere, unspecified severity, without behavioral disturbance, psychotic disturbance, mood disturbance, and anxiety

== ENCOUNTER 2017-04-16 09:40 | Day surgery (SDC) | payer OTHER, MEDICAID ==
[~2017-04-16] VITALS: Ht 165.1 cm; Wt 74.8 kg
[2017-04-16] MEDS ORDERED: LR 1,000 ML IV SCH ×2 (10:00→12:00)
[2017-04-16] MEDS ORDERED: CONRAY-60 60% 50ML VIAL (Q9961) As Ordered ONE (10:11)
[2017-04-16] MEDS ORDERED: LIDOCAINE 2% INJ 100 MG/5 ML SDV (FOR ANES.) As Ordered ONE (11:01)
[2017-04-16] MEDS ORDERED: PROPOFOL 200 MG/20 ML VIAL As Ordered ONE (11:01)
[2017-04-16] MEDS ORDERED: PHENYLephrine HCL 500 MCG/5 ML (100MCG/ML) SYRINGE (J2370) As Ordered ONE (11:01)
[2017-04-16] MEDS ORDERED: fentaNYL 100 MCG/2 ML INJECTION (J3010) As Ordered ONE (11:02)
[2017-04-16] MEDS ORDERED: ONDANSETRON 4MG/2ML VIAL (J2405) As Ordered ONE (11:03)
[2017-04-16] MEDS ORDERED: METOCLOPRAMIDE INJ 10MG/2ML VIAL (J2765) IV PRN (12:00)
[2017-04-16] MEDS ORDERED: ONDANSETRON 4MG/2ML VIAL (J2405) IV PRN (12:00)
[2017-04-16] MEDS ORDERED: NORCO, ANEXSIA 5/325MG TABLET (HYDROcodone/ACETAMINOPHEN) PO PRN (12:00)
[2017-04-16] MEDS ORDERED: ACETAMINOPHEN TAB 650MG DOSE (2X325MG) PO PRN (12:00)
[2017-04-16] MEDS ORDERED: fentaNYL 100 MCG/2 ML INJECTION (J3010) IV PRN (12:00)
[2017-04-16 13:30] VITALS: BP 115/81
--- NOTE | 2017-04-16 19:49 | RO ---
DATE OF PROCEDURE: 04/16/2017 PREPROCEDURE DIAGNOSIS: Right ureteral and kidney stones. POSTPROCEDURE DIAGNOSIS: Right ureteral and kidney stones. PROCEDURE: Cystoscopy, right ureteroscopy with basket extraction of stones, right retrograde pyelogram with intraoperative interpretation of images, right ureteral stent placement. SURGEON: Dr. Jesse Parker ELECTROPLATING LABORER: None. ANESTHESIA: General. OPERATIVE INDICATIONS: This is an 81-year-old male who was found to have an obstructing 6 mm proximal right ureteral stone as well as nonobstructing right intrarenal stones. He was brought to the operating room today for treatment. DESCRIPTION OF PROCEDURE: The patient was brought to the operating room where general anesthesia was induced. Prophylactic antibiotics were infused. He was then placed in dorsal lithotomy position, prepped and draped in the usual sterile fashion. A rigid cystoscope was inserted into the urethral meatus and advanced into the bladder. A wire was then advanced up the right collecting system. The cystoscope was then removed and the wire was utilized to advance the ureteral access sheath up to the collecting system. The stylette was then removed and the secured to serve as a safety wire. I then went up in the right collecting system with the flexible ureteroscope and in the proximal ureter a 6 mm stone was seen. The stone was grasped with a basket and removed. I then examined the kidney and looked in each calyx thoroughly. Only one calyx contained stones and there were approximately 3 stones in the calyx. The largest stone was about 4 mm in size. All the stones were then removed with the basket. After confirming that all of the stones had been removed from the right kidney and ureter a retrograde pyelogram was performed and was negative for extravasation but notable for mild to moderate right hydronephrosis. At this point, the ureteroscope was withdrawn along with the access sheath and no additional stones were seen in the ureter. I then utilized the wire to advance a #6-Yakut x 22-32 cm JJ ureteral stent up into the right collecting system. The wire was then removed and there were adequate curls of the stent in the right renal pelvis and in the bladder. The bladder was then emptied of all fluids. This marked the conclusion of the procedure. The patient was then taken out of dorsal lithotomy position, awaken from anesthesia and transported to the recovery room in stable condition. ESTIMATED BLOOD LOSS: 0 mL COMPLICATIONS: None. SPECIMENS: Kidney stones. PLAN: The patient will followup in clinic in a few weeks for stent removal. AMY
--- NOTE | 2017-04-16 23:10 | REP ---
RETROGRADE PYELOGRAM: Three views. HISTORY: Right-sided nephrolithiasis. 14 seconds of fluoroscopy time is reported. FINDINGS: A sequence of three last image hold fluoroscopic spot radiographs of the abdomen document right ureteral cannulation, contrast injection, and double pigtail ureteral stent placement. Signed by Akira Chatman MD 04/17/2017 11:56 A
== END 2017-04-16 13:39 | disposition home or self-care (01) ==
LOC: M SDC 09:40
PROVIDERS: ATTEND Urology
DX: N20.2 Calculus of kidney with calculus of ureter (principal); I11.9 Hypertensive heart disease without heart failure; I48.2 Chronic atrial fibrillation; I25.10 Atherosclerotic heart disease of native coronary artery without angina pectoris; I25.2 Old myocardial infarction; R94.31 Abnormal electrocardiogram [ECG] [EKG]; E78.00 Pure hypercholesterolemia, unspecified; G47.33 Obstructive sleep apnea (adult) (pediatric); M12.9 Arthropathy, unspecified; R21 Rash and other nonspecific skin eruption; F32.9 Major depressive disorder, single episode, unspecified; R31.9 Hematuria, unspecified; Z79.899 Other long term (current) drug therapy; Z79.01 Long term (current) use of anticoagulants; Z95.5 Presence of coronary angioplasty implant and graft; Z86.718 Personal history of other venous thrombosis and embolism; Z92.21 Personal history of antineoplastic chemotherapy; Z92.3 Personal history of irradiation; Z85.46 Personal history of malignant neoplasm of prostate; Z85.038 Personal history of other malignant neoplasm of large intestine; Z87.891 Personal history of nicotine dependence; Z96.1 Presence of intraocular lens; I08.0 Rheumatic disorders of both mitral and aortic valves
CPT/HCPCS: 52332; 52352; 74420; 82360; 88300; C1894; C2617; J0690; J2370; J2405; J3010; Q9961

== ENCOUNTER → 2017-04-29 | Outpatient (CLI) | payer OTHER, MEDICAID | LOC: M SMT 15:37 | PROVIDERS: ATTEND Urology | DX: Z85.46 Personal history of malignant neoplasm of prostate (principal) ==

== ENCOUNTER 2017-07-07 12:33 | Emergency (ER) | payer OTHER, MEDICAID ==
[2017-07-07 13:45] LABS: BASO % 0.4 % (0.0-1.0); EOS % 0.4 % (0.0-3.0); HEMATOCRIT 36.4 % (42.0-52.0); HEMOGLOBIN 11.5 g/dl (14.0-18.0); IMMATURE GRANULOCYTE % 0.4 % (0-0); LYMPH % 18.3 % (24.0-44.0); MEAN CORPUSCULAR HEMOGLOBIN 29.9 pg (27.0-33.0); MEAN CORPUSCULAR HGB CONC 31.6 g/dl (32.0-36.5); MEAN CORPUSCULAR VOLUME 94.5 fl (80.0-96.0); MONO # 0.5 10^3/uL (0.0-0.8); NEUTROPHILS % 71.5 % (36.0-66.0); PLATELET COUNT, AUTOMATED 122 10^3/uL (150-450); RED BLOOD COUNT 3.85 10^6/uL (4.30-6.10); RED CELL DISTRIBUTION WIDTH 13.9 % (11.5-14.5); WHITE BLOOD COUNT 5.6 10^3/uL (4.0-10.0)
[2017-07-07 14:01] LABS: INR 2.59; PROTHROMBIN TIME 28.8 SECONDS (12.4-14.5)
[2017-07-07 14:11] LABS: ALBUMIN 3.8 GM/DL (3.2-5.2); ALBUMIN/GLOBULIN RATIO 1.31 (1.00-1.93); ALKALINE PHOSPHATASE 101 U/L (45-117); ALT/SGPT 11 U/L (12-78); ANION GAP 9 MEQ/L (8-16); AST/SGOT 7 U/L (7-37); BILIRUBIN,TOTAL 0.9 MG/DL (0.2-1.0); BLOOD UREA NITROGEN 19 MG/DL (7-18); CALCIUM LEVEL 8.3 MG/DL (8.8-10.2); CARBON DIOXIDE LEVEL 27 MEQ/L (21-32); CHLORIDE LEVEL 108 MEQ/L (98-107); GLOMERULAR FILTRATION RATE 56.4 (>35); GLUCOSE, FASTING 92 MG/DL (83-110); POTASSIUM SERUM 4.3 MEQ/L (3.5-5.1); SODIUM LEVEL 144 MEQ/L (136-145); TOTAL PROTEIN 6.7 GM/DL (6.4-8.2)
[2017-07-07 14:17] LABS: APPEARANCE, URINE MANUAL TURBID (CLEAR); COLOR, URINE MANUAL RED (YELLOW); SPECIFIC GRAVITY,URINE MANUAL 1.022 (1.002-1.035)
[2017-07-07 14:18] LABS: BILIRUBIN, URINE MANUAL NEGATIVE (NEGATIVE); BLOOD URINE MANUAL RFX POSITIVE (NEGATIVE); GLUCOSE, URINE (UA) MANUAL NEGATIVE (NEGATIVE); KETONE, URINE MANUAL NEGATIVE (NEGATIVE); MICROSCOPIC INDICATED? RFX YES (NO); NITRITE, URINE MANUAL RFX POSITIVE (NEGATIVE); PROTEIN, URINE MANUAL 3+ mg/dL (NEGATIVE); UROBILINOGEN, URINE MANUAL NORMAL (NORMAL)
[2017-07-07 14:25] LABS: BACTERIA, URINE LARGE AMOUNT; HYALINE CAST, URINE NONE SEEN /lpf (0-1); MICROSCOPIC EXAM UNSPUN; RBC, URINE TNTC /hpf (0-3); SQUAMOUS EPITHELIAL CELL URINE SMALL AMOUNT /hpf (SMALL AMT); TRIPLE PHOSPHATE CRYSTAL,URINE MOD AMOUNT /hpf; WBC, URINE MAN RFX 20-30 /hpf (0-3)
[2017-07-07] MEDS: CEFTRIAXONE SOD 1 GM in APPROPRIATE DILUENT 1 EA IV (16:45)
== END 2017-07-07 17:27 | disposition home or self-care (01) ==
LOC: M ED 12:33
DX: N39.0 Urinary tract infection, site not specified (principal); R31.9 Hematuria, unspecified; I10 Essential (primary) hypertension; J44.9 Chronic obstructive pulmonary disease, unspecified; I48.91 Unspecified atrial fibrillation; I25.2 Old myocardial infarction; Z87.442 Personal history of urinary calculi; Z85.46 Personal history of malignant neoplasm of prostate; Z79.899 Other long term (current) drug therapy; Z79.01 Long term (current) use of anticoagulants
CPT/HCPCS: 71046

== ENCOUNTER → 2017-07-31 | Outpatient (REF) | payer OTHER, MEDICAID ==
[2017-07-31 15:14] LABS: APPEARANCE, URINE HAZY (CLEAR); BACTERIA, URINE AUTO NEGATIVE (NEGATIVE); BILIRUBIN, URINE AUTO NEGATIVE (NEGATIVE); BLOOD, URINE BLOOD 3+ (NEGATIVE); CALCIUM OXALATE CRYSTALS SMALL; COLOR, URINE AMBER (YELLOW); GLUCOSE, URINE (UA) AUTO NEGATIVE (NEGATIVE); KETONE, URINE AUTO NEGATIVE (NEGATIVE); LEUKOCYTE ESTERASE, URINE AUTO TRACE (NEGATIVE); MUCUS, URINE SMALL (NEGATIVE); NITRITE, URINE AUTO NEGATIVE (NEGATIVE); PROTEIN, URINE AUTO 1+ mg/dL (NEGATIVE); RBC, URINE AUTO TNTC /HPF (0-3); SPECIFIC GRAVITY URINE AUTO 1.021 (1.002-1.035); SQUAMOUS EPITHELIAL CELL UR AU 1 /HPF (0-6); WBC, URINE AUTO 24 /HPF (0-3)
== END ==
LOC: M SMT 13:25
DX: R31.0 Gross hematuria (principal); N39.0 Urinary tract infection, site not specified
CPT/HCPCS: 81001

== ENCOUNTER → 2017-09-11 | Outpatient (REF) | payer OTHER, MEDICAID ==
[2017-09-11 11:12] LABS: HEMATOCRIT 38.8 % (42.0-52.0); HEMOGLOBIN 11.9 g/dl (14.0-18.0); MEAN CORPUSCULAR HEMOGLOBIN 27.8 pg (27.0-33.0); MEAN CORPUSCULAR HGB CONC 30.7 g/dl (32.0-36.5); MEAN CORPUSCULAR VOLUME 90.7 fl (80.0-96.0); PLATELET COUNT, AUTOMATED 163 10^3/uL (150-450); RED BLOOD COUNT 4.28 10^6/uL (4.30-6.10); RED CELL DISTRIBUTION WIDTH 14.2 % (11.5-14.5); WHITE BLOOD COUNT 4.9 10^3/uL (4.0-10.0)
[2017-09-11 11:33] LABS: ALBUMIN/GLOBULIN RATIO 1.25 (1.00-1.93); ALKALINE PHOSPHATASE 112 U/L (45-117); ALT/SGPT 11 U/L (12-78); ANION GAP 7 MEQ/L (8-16); AST/SGOT 9 U/L (7-37); BILIRUBIN,TOTAL 0.8 MG/DL (0.2-1.0); BLOOD UREA NITROGEN 18 MG/DL (7-18); CARBON DIOXIDE LEVEL 27 MEQ/L (21-32); CHLORIDE LEVEL 109 MEQ/L (98-107); CHOLESTEROL LEVEL 100 MG/DL (<200); CHOLESTEROL RISK RATIO 2.272 (<5); CREATININE FOR GFR 1.13 MG/DL (0.70-1.30); GLOMERULAR FILTRATION RATE > 60.0 (>35); GLUCOSE, FASTING 90 MG/DL (70-100); HDL CHOLESTEROL 44 MG/DL (>40); LDL CHOLESTEROL 38.8 MG/DL (<100); MAGNESIUM LEVEL 2.1 MG/DL (1.8-2.4); NON-HDL-C 56 MG/DL; POTASSIUM SERUM 4.5 MEQ/L (3.5-5.1); SODIUM LEVEL 143 MEQ/L (136-145); TOTAL PROTEIN 7.2 GM/DL (6.4-8.2); TRIGLYCERIDES LEVEL 86 MG/DL (<150)
== END ==
LOC: M LABDRAWC 10:58
DX: I25.10 Atherosclerotic heart disease of native coronary artery without angina pectoris (principal); I48.2 Chronic atrial fibrillation; E78.00 Pure hypercholesterolemia, unspecified
CPT/HCPCS: 83735

== ENCOUNTER 2017-11-28 23:10 | Emergency (ER) | payer OTHER, MEDICAID ==
[2017-11-28 23:39] LABS: BASO % 0.2 % (0.0-1.0); EOS # 0.1 10^3/uL (0.0-0.50); EOS % 1.2 % (0.0-3.0); HEMATOCRIT 31.9 % (42.0-52.0); HEMOGLOBIN 10.3 g/dl (13.5-17.5); IMMATURE GRANULOCYTE % 0.2 % (0-3.0); LYMPH # 0.9 10^3/uL (1.5-4.5); LYMPH % 17.3 % (24.0-44.0); MEAN CORPUSCULAR HEMOGLOBIN 29.3 pg (27.0-33.0); MEAN CORPUSCULAR HGB CONC 32.3 g/dl (32.0-36.5); MEAN CORPUSCULAR VOLUME 90.9 fl (80.0-96.0); MONO # 0.4 10^3/uL (0.0-0.8); MONO % 6.9 % (0.0-5.0); NEUTROPHILS # 3.8 10^3/uL (1.8-7.7); NEUTROPHILS % 74.2 % (36.0-66.0); RED BLOOD COUNT 3.51 10^6/uL (4.30-6.10); RED CELL DISTRIBUTION WIDTH 15.9 % (11.5-14.5); WHITE BLOOD COUNT 5.1 10^3/uL (4.0-10.0)
[2017-11-28 23:56] LABS: PLATELET COUNT, AUTOMATED 81 10^3/uL (150-450)
[2017-11-29 00:08] LABS: ANION GAP 6 MEQ/L (8-16); BLOOD UREA NITROGEN 18 MG/DL (7-18); CALCIUM LEVEL 8.3 MG/DL (8.8-10.2); CARBON DIOXIDE LEVEL 25 MEQ/L (21-32); CHLORIDE LEVEL 114 MEQ/L (98-107); CK-MB VALUE MASS < 1.0 NG/ML (<3.6); CPK CREATINE PHOSPHOKINASE 34 U/L (39-308); CREATININE FOR GFR 1.11 MG/DL (0.70-1.30); GLOMERULAR FILTRATION RATE > 60.0 (>35); GLUCOSE, FASTING 127 MG/DL (70-100); MB/CK RELATIVE INDEX 2.94 (< OR =4); POTASSIUM SERUM 3.8 MEQ/L (3.5-5.1); SODIUM LEVEL 145 MEQ/L (136-145); TROPONIN I 0.19 NG/ML (< 0.10)
[2017-11-29] MEDS: ASPIRIN 325 MG TAB PO (01:30)
[2017-11-29 04:21] LABS: CK-MB VALUE MASS 1.1 NG/ML (<3.6); CPK CREATINE PHOSPHOKINASE 35 U/L (39-308); MB/CK RELATIVE INDEX 3.14 (< OR =4); TROPONIN I 0.23 NG/ML (< 0.10)
[2017-11-29] MEDS: HEPARIN SOD (PORCINE) 5000 UNITS/ML VIAL IV (07:12)
[2017-11-29] MEDS: HEPARIN DRIP 25,000 UNITS in APPROPRIATE DILUENT 1 EA IV (07:12)
[2017-11-29 07:53] LABS: ALBUMIN 3.4 GM/DL (3.2-5.2); ALBUMIN/GLOBULIN RATIO 0.97 (1.00-1.93); ALKALINE PHOSPHATASE 111 U/L (45-117); ALT/SGPT 14 U/L (12-78); AST/SGOT 8 U/L (7-37); BILIRUBIN,DIRECT 0.1 MG/DL (0.0-0.2); BILIRUBIN,TOTAL 0.4 MG/DL (0.2-1.0); MAGNESIUM LEVEL 2.2 MG/DL (1.8-2.4); NT-PRO BNP 2329 PG/ML (<450); TOTAL PROTEIN 6.9 GM/DL (6.4-8.2)
== END 2017-11-29 08:12 | disposition other institution (70) ==
LOC: M ED 23:10
DX: I20.9 Angina pectoris, unspecified (principal); I24.9 Acute ischemic heart disease, unspecified; I48.2 Chronic atrial fibrillation; I51.7 Cardiomegaly; R05 Cough; F03.90 Unspecified dementia, unspecified severity, without behavioral disturbance, psychotic disturbance, mood disturbance, and anxiety; Z87.442 Personal history of urinary calculi; Z79.899 Other long term (current) drug therapy
CPT/HCPCS: 71045

== ENCOUNTER → 2018-01-30 | Outpatient (REF) | payer OTHER, MEDICAID | LOC: M SMT 17:02 | DX: R31.0 Gross hematuria (principal) | CPT/HCPCS: 87086 ==

== ENCOUNTER → 2018-02-06 | Outpatient (REF) | payer OTHER, MEDICAID | LOC: M LABSMT 10:21 | DX: R31.0 Gross hematuria (principal) | CPT/HCPCS: 87186 ==

== ENCOUNTER 2018-02-10 17:33 | Emergency (ER) | payer OTHER, MEDICAID, MEDICARE ==
[2018-02-10] MEDS: NS 500 ML IV (18:45)
[2018-02-10 18:48] LABS: BASO % 0.1 % (0.0-1.0); HEMATOCRIT 35.7 % (42.0-52.0); HEMOGLOBIN 11.6 g/dl (13.5-17.5); IMMATURE GRANULOCYTE % 0.6 % (0-3.0); LYMPH # 0.3 10^3/uL (1.5-4.5); LYMPH % 2.8 % (24.0-44.0); MEAN CORPUSCULAR HEMOGLOBIN 30.1 pg (27.0-33.0); MEAN CORPUSCULAR HGB CONC 32.5 g/dl (32.0-36.5); MEAN CORPUSCULAR VOLUME 92.5 fl (80.0-96.0); MONO # 0.4 10^3/uL (0.0-0.8); MONO % 3.7 % (0.0-5.0); NEUTROPHILS # 9.1 10^3/uL (1.8-7.7); NEUTROPHILS % 92.8 % (36.0-66.0); RED BLOOD COUNT 3.86 10^6/uL (4.30-6.10); RED CELL DISTRIBUTION WIDTH 15.2 % (11.5-14.5); WHITE BLOOD COUNT 9.8 10^3/uL (4.0-10.0)
[2018-02-10 19:06] LABS: LACTIC ACID SEPSIS PROTOCOL 2.3 MMOL/L (0.4-2.0)
[2018-02-10 19:14] LABS: ALBUMIN 3.4 GM/DL (3.2-5.2); ALBUMIN/GLOBULIN RATIO 0.92 (1.00-1.93); ALKALINE PHOSPHATASE 83 U/L (45-117); ALT/SGPT 23 U/L (12-78); ANION GAP 8 MEQ/L (8-16); AST/SGOT 57 U/L (7-37); BILIRUBIN,DIRECT 0.4 MG/DL (0.0-0.2); BILIRUBIN,TOTAL 1.3 MG/DL (0.2-1.0); BLOOD UREA NITROGEN 22 MG/DL (7-18); CALCIUM LEVEL 8.6 MG/DL (8.8-10.2); CARBON DIOXIDE LEVEL 24 MEQ/L (21-32); CHLORIDE LEVEL 112 MEQ/L (98-107); CPK CREATINE PHOSPHOKINASE 330 U/L (39-308); CREATININE FOR GFR 1.59 MG/DL (0.70-1.30); GLOMERULAR FILTRATION RATE 44.7 (>35); GLUCOSE, FASTING 153 MG/DL (70-100); MB/CK RELATIVE INDEX 4.84 (< OR =4); PLATELET COUNT, AUTOMATED 101 10^3/uL (150-450); POS COUNT POS FLAG; POSITIVE DIFF POS FLAG; SODIUM LEVEL 144 MEQ/L (136-145); TOTAL PROTEIN 7.1 GM/DL (6.4-8.2)
[2018-02-10 19:30] LABS: APPEARANCE, URINE CLOUDY (CLEAR); BACTERIA, URINE AUTO 3+ (NEGATIVE); BILIRUBIN, URINE AUTO NEGATIVE (NEGATIVE); BLOOD, URINE BLOOD 2+ (NEGATIVE); COLOR, URINE AMBER (YELLOW); GLUCOSE, URINE (UA) AUTO NEGATIVE (NEGATIVE); KETONE, URINE AUTO TRACE mg/dL (NEGATIVE); LEUKOCYTE ESTERASE, URINE AUTO TRACE (NEGATIVE); MUCUS, URINE SMALL (NEGATIVE); NITRITE, URINE AUTO NEGATIVE (NEGATIVE); PROTEIN, URINE AUTO 2+ mg/dL (NEGATIVE); RBC, URINE AUTO 59 /HPF (0-3); SPECIFIC GRAVITY URINE AUTO 1.014 (1.002-1.035); SQUAMOUS EPITHELIAL CELL UR AU 0 /HPF (0-6); UROBILINOGEN, URINE AUTO 0.2 mg/dL (0.0-2.0); WBC, URINE AUTO TNTC /HPF (0-3)
[2018-02-10] MEDS: cefTRIAXone SOD 1 GM in D5W MINI-BAG PLUS 50 ML IV (19:52)
[2018-02-10] MEDS: ASPIRIN 81 MG CHEW TABLET PO (20:02)
[2018-02-10] MEDS: HEPARIN DRIP 25,000 UNITS in APPROPRIATE DILUENT 1 EA IV (20:29)
[2018-02-10] MEDS: HEPARIN SOD (PORCINE) 5000 UNITS/ML VIAL IV (20:29)
[2018-02-10] MEDS: ACETAMINOPHEN TAB 650MG DOSE (2X325MG) PO (20:30)
== END 2018-02-10 21:09 | disposition short-term general hospital (02) ==
LOC: M ED 17:33
DX: I21.4 Non-ST elevation (NSTEMI) myocardial infarction (principal); N39.0 Urinary tract infection, site not specified; I10 Essential (primary) hypertension; I48.91 Unspecified atrial fibrillation; Z79.899 Other long term (current) drug therapy; Z79.82 Long term (current) use of aspirin; Z79.02 Long term (current) use of antithrombotics/antiplatelets; Z87.891 Personal history of nicotine dependence
CPT/HCPCS: J0696

== ENCOUNTER 2018-02-23 12:29 | Emergency (ER) | payer OTHER, MEDICAID ==
[2018-02-23 13:26] LABS: HEMATOCRIT 33.1 % (42.0-52.0); HEMOGLOBIN 10.5 g/dl (13.5-17.5); MEAN CORPUSCULAR HGB CONC 31.7 g/dl (32.0-36.5); MEAN CORPUSCULAR VOLUME 94.6 fl (80.0-96.0); PLATELET COUNT, AUTOMATED 239 10^3/uL (150-450); RED CELL DISTRIBUTION WIDTH 15.2 % (11.5-14.5); WHITE BLOOD COUNT 6.9 10^3/uL (4.0-10.0)
[2018-02-23 13:45] LABS: PROTEIN, URINE MANUAL REFLEX 3+ mg/dL (NEGATIVE); SP GRAVITY,URINE MANUAL REFLEX 1.015 (1.002-1.035)
[2018-02-23 13:46] LABS: BILIRUBIN, URINE MANUAL NEGATIVE (NEGATIVE); BLOOD URINE MANUAL RFX POSITIVE (NEGATIVE); GLUCOSE, URINE (UA) MANUAL NEGATIVE (NEGATIVE); KETONE, URINE MANUAL NEGATIVE (NEGATIVE); NITRITE, URINE MANUAL RFX NEGATIVE (NEGATIVE); UROBILINOGEN, URINE MANUAL NORMAL (NORMAL)
[2018-02-23 13:47] LABS: RBC, URINE TNTC /hpf (0-3)
[2018-02-23 13:49] LABS: BACTERIA, URINE NONE SEEN; HYALINE CAST, URINE NONE SEEN /lpf (0-1); SQUAMOUS EPITHELIAL CELL URINE NONE SEEN /hpf (SMALL AMT)
[2018-02-23 13:57] LABS: MICROSCOPIC EXAM PERFORMED
[2018-02-23 14:07] LABS: WBC, URINE MAN RFX 0-1 /hpf (0-3)
== END 2018-02-23 14:44 | disposition home or self-care (01) ==
LOC: M ED 12:29
DX: R31.9 Hematuria, unspecified (principal); I25.10 Atherosclerotic heart disease of native coronary artery without angina pectoris; I10 Essential (primary) hypertension; F03.90 Unspecified dementia, unspecified severity, without behavioral disturbance, psychotic disturbance, mood disturbance, and anxiety; Z79.01 Long term (current) use of anticoagulants; Z79.899 Other long term (current) drug therapy; Z95.5 Presence of coronary angioplasty implant and graft; Z98.890 Other specified postprocedural states; Z87.891 Personal history of nicotine dependence; Z85.038 Personal history of other malignant neoplasm of large intestine
CPT/HCPCS: 85027

== ENCOUNTER → 2018-03-05 | Outpatient (REF) | payer MEDICARE, OTHER ==
[2018-03-05 13:42] LABS: BACTERIA, URINE AUTO 1+ (NEGATIVE); MUCUS, URINE SMALL (NEGATIVE); RBC, URINE AUTO TNTC /HPF (0-3); SQUAMOUS EPITHELIAL CELL UR AU 0 /HPF (0-6); WBC, URINE AUTO TNTC /HPF (0-3)
== END ==
LOC: M SMT 12:48
DX: N39.0 Urinary tract infection, site not specified (principal)
CPT/HCPCS: 81015

== ENCOUNTER → 2018-04-09 | Outpatient (REF) | payer MEDICARE, OTHER, MEDICAID ==
[2018-04-09 18:28] LABS: APPEARANCE, URINE CLOUDY (CLEAR); BACTERIA, URINE AUTO 3+ (NEGATIVE); BILIRUBIN, URINE AUTO NEGATIVE (NEGATIVE); BLOOD, URINE BLOOD 2+ (NEGATIVE); COLOR, URINE RED (YELLOW); GLUCOSE, URINE (UA) AUTO NEGATIVE (NEGATIVE); KETONE, URINE AUTO NEGATIVE (NEGATIVE); LEUKOCYTE ESTERASE, URINE AUTO 2+ (NEGATIVE); MUCUS, URINE SMALL (NEGATIVE); NITRITE, URINE AUTO NEGATIVE (NEGATIVE); PROTEIN, URINE AUTO 2+ mg/dL (NEGATIVE); RBC, URINE AUTO TNTC /HPF (0-3); SPECIFIC GRAVITY URINE AUTO 1.016 (1.002-1.035); SQUAMOUS EPITHELIAL CELL UR AU 0 /HPF (0-6); UROBILINOGEN, URINE AUTO 0.2 mg/dL (0.0-2.0); WBC, URINE AUTO TNTC /HPF (0-3)
== END ==
LOC: M LABSMT 10:33 → M LABDRAWC 10:44
DX: R31.0 Gross hematuria (principal)
CPT/HCPCS: 81001

== ENCOUNTER 2018-04-11 10:11 | Emergency (ER) | payer OTHER, MEDICAID, MEDICARE ==
[2018-04-11 11:20] LABS: BEDSIDE GLUCOSE 108 MG/DL (83-110)
[2018-04-16 12:37] LABS: BEDSIDE GLUCOSE 88 MG/DL (83-110)
== END 2018-04-11 12:41 | disposition home or self-care (01) ==
LOC: M ED 10:11
DX: S50.311A Abrasion of right elbow, initial encounter (principal); W01.0XXA Fall on same level from slipping, tripping and stumbling without subsequent striking against object, initial encounter; Y92.018 Other place in single-family (private) house as the place of occurrence of the external cause; I10 Essential (primary) hypertension; I48.91 Unspecified atrial fibrillation; I25.10 Atherosclerotic heart disease of native coronary artery without angina pectoris; Z95.5 Presence of coronary angioplasty implant and graft; Z79.899 Other long term (current) drug therapy; Z79.82 Long term (current) use of aspirin; Z79.02 Long term (current) use of antithrombotics/antiplatelets
CPT/HCPCS: 70450

== ENCOUNTER 2018-04-14 12:45 | Emergency (ER) | payer OTHER, MEDICAID ==
[2018-04-14 14:11] LABS: INR 1.29; PROTHROMBIN TIME 16.3 SECONDS (12.1-14.4)
[2018-04-14 14:12] LABS: BASO % 0.1 % (0.0-1.0); EOS % 0.3 % (0.0-3.0); IMMATURE GRANULOCYTE % 0.4 % (0-3.0); LYMPH # 1.1 10^3/uL (1.5-4.5); MEAN CORPUSCULAR HEMOGLOBIN 28.7 pg (27.0-33.0); MEAN CORPUSCULAR HGB CONC 31.4 g/dl (32.0-36.5); MEAN CORPUSCULAR VOLUME 91.4 fl (80.0-96.0); MONO # 0.9 10^3/uL (0.0-0.8); MONO % 11.3 % (0.0-5.0); NEUTROPHILS # 5.8 10^3/uL (1.8-7.7); NEUTROPHILS % 73.9 % (36.0-66.0); PLATELET COUNT, AUTOMATED 121 10^3/uL (150-450); RED BLOOD COUNT 3.83 10^6/uL (4.30-6.10); RED CELL DISTRIBUTION WIDTH 15.1 % (11.5-14.5); WHITE BLOOD COUNT 7.9 10^3/uL (4.0-10.0)
[2018-04-14 15:16] LABS: ALBUMIN 3.7 GM/DL (3.2-5.2); ALBUMIN/GLOBULIN RATIO 1.23 (1.00-1.93); ALKALINE PHOSPHATASE 98 U/L (45-117); ALT/SGPT 16 U/L (12-78); ANION GAP 9 MEQ/L (8-16); AST/SGOT 8 U/L (7-37); BILIRUBIN,DIRECT 0.4 MG/DL (0.0-0.2); BILIRUBIN,TOTAL 1.4 MG/DL (0.2-1.0); BLOOD UREA NITROGEN 22 MG/DL (7-18); CARBON DIOXIDE LEVEL 24 MEQ/L (21-32); CHLORIDE LEVEL 112 MEQ/L (98-107); CK-MB VALUE MASS < 1.0 NG/ML (<3.6); CPK CREATINE PHOSPHOKINASE 30 U/L (39-308); CREATININE FOR GFR 1.04 MG/DL (0.70-1.30); FREE T4 1.13 NG/DL (0.76-1.46); GLOMERULAR FILTRATION RATE > 60.0 (>35); GLUCOSE, FASTING 105 MG/DL (70-100); MB/CK RELATIVE INDEX 3.33 (< OR =4); SODIUM LEVEL 145 MEQ/L (136-145); THYROID STIMULATING HORMONE 0.635 uIU/ML (0.358-3.740); TOTAL PROTEIN 6.7 GM/DL (6.4-8.2); TROPONIN I < 0.02 NG/ML (< 0.10)
[2018-04-14] MEDS ORDERED: ISOVUE-370 76% 100ML VIAL (Q9967) As Ordered (17:20)
[2018-04-14 17:57] LABS: KETONE, URINE AUTO RFX NEGATIVE (NEGATIVE); NITRITE, URINE AUTO RFX NEGATIVE (NEGATIVE); RBC, URINE AUTO RFX 30 /HPF (0-3); SPECIFIC GRAVITY UR AUTO RFX 1.018 (1.002-1.035); SQUAM EPITHELIAL CELL UR AURFX 2 /HPF (0-6)
[2018-04-14 18:00] LABS: LEUKOCYTE ESTERASE UR AUTO RFX 3+ (NEGATIVE); WBC, URINE AUTO RFX TNTC /HPF (0-3)
[2018-04-14] MEDS: LevoFLOXacin 500 MG TABLET PO (19:24)
== END 2018-04-14 19:26 | disposition home or self-care (01) ==
LOC: M ED 12:45
DX: N39.0 Urinary tract infection, site not specified (principal); I48.91 Unspecified atrial fibrillation; N28.1 Cyst of kidney, acquired; I25.10 Atherosclerotic heart disease of native coronary artery without angina pectoris; Z85.038 Personal history of other malignant neoplasm of large intestine; Z86.711 Personal history of pulmonary embolism; Z95.5 Presence of coronary angioplasty implant and graft; Z95.828 Presence of other vascular implants and grafts; Z80.9 Family history of malignant neoplasm, unspecified; Z79.82 Long term (current) use of aspirin; Z79.899 Other long term (current) drug therapy
CPT/HCPCS: Q9967

== ENCOUNTER → 2018-04-20 | Outpatient (REF) | payer OTHER, MEDICAID ==
[2018-04-20 12:36] LABS: HEMATOCRIT 35.6 % (42.0-52.0); HEMOGLOBIN 10.7 g/dl (13.5-17.5); MEAN CORPUSCULAR HEMOGLOBIN 28.2 pg (27.0-33.0); MEAN CORPUSCULAR HGB CONC 30.1 g/dl (32.0-36.5); MEAN CORPUSCULAR VOLUME 93.7 fl (80.0-96.0); PLATELET COUNT, AUTOMATED 192 10^3/uL (150-450); RED CELL DISTRIBUTION WIDTH 14.6 % (11.5-14.5); WHITE BLOOD COUNT 5.8 10^3/uL (4.0-10.0)
== END ==
LOC: M LABDRAWC 11:21
DX: I48.2 Chronic atrial fibrillation (principal)
CPT/HCPCS: 85027

== ENCOUNTER → 2018-04-24 | Outpatient (REF) | payer OTHER, MEDICAID, MEDICARE ==
[2018-04-24 18:02] LABS: APPEARANCE, URINE HAZY (CLEAR); BACTERIA, URINE AUTO NEGATIVE (NEGATIVE); BILIRUBIN, URINE AUTO NEGATIVE (NEGATIVE); BLOOD, URINE BLOOD 2+ (NEGATIVE); COLOR, URINE YELLOW (YELLOW); GLUCOSE, URINE (UA) AUTO NEGATIVE (NEGATIVE); KETONE, URINE AUTO NEGATIVE (NEGATIVE); LEUKOCYTE ESTERASE, URINE AUTO 1+ (NEGATIVE); MUCUS, URINE SMALL (NEGATIVE); NITRITE, URINE AUTO NEGATIVE (NEGATIVE); PROTEIN, URINE AUTO 1+ mg/dL (NEGATIVE); RBC, URINE AUTO 38 /HPF (0-3); SQUAMOUS EPITHELIAL CELL UR AU 0 /HPF (0-6); WBC, URINE AUTO 54 /HPF (0-3)
== END ==
LOC: M SMT 16:57
DX: N39.0 Urinary tract infection, site not specified (principal)
CPT/HCPCS: 81001

== ENCOUNTER → 2018-05-05 | Outpatient (CLI) | payer OTHER, MEDICAID | LOC: M RAD 12:32 | DX: N39.0 Urinary tract infection, site not specified (principal); N28.1 Cyst of kidney, acquired | CPT/HCPCS: 76775 ==

== ENCOUNTER → 2018-06-05 | Outpatient (CLI) | payer OTHER, MEDICAID, MEDICARE | LOC: M RAD 10:54 | DX: R33.9 Retention of urine, unspecified (principal) | CPT/HCPCS: 76857 ==

== ENCOUNTER 2018-06-09 10:56 | Inpatient (IN) | payer OTHER, MEDICAID ==
[2018-06-09 11:32] LABS: BASO % 0.2 % (0.0-1.0); EOS % 0.2 % (0.0-3.0); HEMOGLOBIN 11.8 g/dl (13.5-17.5); IMMATURE GRANULOCYTE % 0.4 % (0-3.0); LYMPH % 11.7 % (24.0-44.0); MEAN CORPUSCULAR HEMOGLOBIN 27.3 pg (27.0-33.0); MEAN CORPUSCULAR HGB CONC 30.3 g/dl (32.0-36.5); MEAN CORPUSCULAR VOLUME 90.1 fl (80.0-96.0); MONO # 0.9 10^3/uL (0.0-0.8); MONO % 10.6 % (0.0-5.0); NEUTROPHILS # 6.3 10^3/uL (1.8-7.7); NEUTROPHILS % 76.9 % (36.0-66.0); PLATELET COUNT, AUTOMATED 243 10^3/uL (150-450); RED BLOOD COUNT 4.33 10^6/uL (4.30-6.10); RED CELL DISTRIBUTION WIDTH 15.9 % (11.5-14.5); WHITE BLOOD COUNT 8.2 10^3/uL (4.0-10.0)
[2018-06-09 11:40] LABS: INR 1.28; PROTHROMBIN TIME 16.1 SECONDS (12.1-14.4)
[2018-06-09 11:41] LABS: PARTIAL THROMBOPLASTIN TIME 34.3 SECONDS (25.4-37.6)
[2018-06-09 11:50] LABS: VENOUS BASE EXCESS -0.6 (-2.0-2.0); VENOUS HCO3 23.5 MEQ/L (23.0-27.0); VENOUS O2 SATURATION 86.4 % (60.0-80.0); VENOUS PARTIAL PRESSURE CO2 36.8 mmHg (38.0-50.0); VENOUS PARTIAL PRESSURE O2 50.8 mmHg (30.0-50.0); VENOUS PH 7.423 UNITS (7.330-7.430); VENOUS STANDARD HCO3 23.8 MEQ/L; VENOUS TOTAL CO2 24.6 MEQ/L (24.0-28.0)
[2018-06-09 12:09] LABS: LACTIC ACID SEPSIS PROTOCOL 1.6 MMOL/L (0.4-2.0)
[2018-06-09] MEDS: NS 1,980 ML in APPROPRIATE DILUENT 1 EA IV (12:16)
[2018-06-09 12:27] LABS: APPEARANCE, URINE TURBID (CLEAR); BACTERIA, URINE AUTO 3+ (NEGATIVE); BILIRUBIN, URINE AUTO NEGATIVE (NEGATIVE); BLOOD, URINE BLOOD 2+ (NEGATIVE); COLOR, URINE AMBER (YELLOW); GLUCOSE, URINE (UA) AUTO NEGATIVE (NEGATIVE); KETONE, URINE AUTO NEGATIVE (NEGATIVE); LEUKOCYTE ESTERASE, URINE AUTO 3+ (NEGATIVE); NITRITE, URINE AUTO POSITIVE (NEGATIVE); PROTEIN, URINE AUTO 3+ mg/dL (NEGATIVE); RBC, URINE AUTO TNTC /HPF (0-3); SQUAMOUS EPITHELIAL CELL UR AU 0 /HPF (0-6); UROBILINOGEN, URINE AUTO 0.2 mg/dL (0.0-2.0); WBC, URINE AUTO TNTC /HPF (0-3)
[2018-06-09] MEDS: cefTRIAXone SOD 2 GM in D5W MINI-BAG PLUS 50 ML IV (12:30)
[2018-06-09 12:43] LABS: INFLUENZA A AMPLIFICATION NEGATIVE (NEGATIVE); INFLUENZA B AMPLIFICATION NEGATIVE (NEGATIVE)
[2018-06-09 12:52] LABS: ALBUMIN 3.4 GM/DL (3.2-5.2); ALBUMIN/GLOBULIN RATIO 0.85 (1.00-1.93); ALKALINE PHOSPHATASE 127 U/L (45-117); ALT/SGPT 17 U/L (12-78); ANION GAP 8 MEQ/L (8-16); AST/SGOT 13 U/L (7-37); BILIRUBIN,DIRECT 0.3 MG/DL (0.0-0.2); BILIRUBIN,TOTAL 1.1 MG/DL (0.2-1.0); BLOOD UREA NITROGEN 28 MG/DL (7-18); CARBON DIOXIDE LEVEL 25 MEQ/L (21-32); CHLORIDE LEVEL 109 MEQ/L (98-107); CK-MB VALUE MASS < 1.0 NG/ML (<3.6); CPK CREATINE PHOSPHOKINASE 55 U/L (39-308); CREATININE FOR GFR 1.62 MG/DL (0.70-1.30); GLOMERULAR FILTRATION RATE 43.6 (>35); GLUCOSE, FASTING 103 MG/DL (70-100); MB/CK RELATIVE INDEX 1.82 (< OR =4); POTASSIUM SERUM 4.6 MEQ/L (3.5-5.1); SODIUM LEVEL 142 MEQ/L (136-145); TOTAL PROTEIN 7.4 GM/DL (6.4-8.2); TROPONIN I < 0.02 NG/ML (< 0.10)
[2018-06-09] MEDS: NS 500 ML IV (15:15)
[2018-06-09] MEDS ORDERED: NITROGLYCERIN 0.4 MG SUBL TABLET SL (16:15)
[2018-06-09] MEDS ORDERED: LORazepam 2 MG/ML VIAL (J2060) As Ordered (16:49)
[2018-06-09] MEDS: LORazepam 2 MG/ML VIAL (J2060) IV ×2 (16:51→16:55)
[2018-06-09] MEDS: NS 1,000 ML IV ×2 (16:51→20:08)
[2018-06-09 18:58] LABS: TROPONIN I < 0.02 NG/ML (< 0.10)
[2018-06-09] MEDS: CEFEPIME HCL 1 GM in D5W MINI-BAG PLUS 50 ML IV (20:13)
[2018-06-09] MEDS: SERTRALINE 100 MG TAB PO (21:00)
[2018-06-09] MEDS: ATORVASTATIN 20 MG TAB PO (21:00)
[2018-06-09] MEDS: HEPARIN SOD (PORCINE) 5000 UNITS/ML VIAL SC (21:16)
[2018-06-09 23:41] LABS: TROPONIN I < 0.02 NG/ML (< 0.10)
[2018-06-10] MEDS: HEPARIN SOD (PORCINE) 5000 UNITS/ML VIAL SC ×3 (05:01→21:11)
[2018-06-10 05:14] LABS: HEMATOCRIT 27.7 % (42.0-52.0); MEAN CORPUSCULAR HEMOGLOBIN 27.7 pg (27.0-33.0); MEAN CORPUSCULAR HGB CONC 30.3 g/dl (32.0-36.5); MEAN CORPUSCULAR VOLUME 91.4 fl (80.0-96.0); PLATELET COUNT, AUTOMATED 159 10^3/uL (150-450); RED BLOOD COUNT 3.03 10^6/uL (4.30-6.10); WHITE BLOOD COUNT 4.5 10^3/uL (4.0-10.0)
[2018-06-10 05:23] LABS: HEMOGLOBIN 8.4 g/dl (13.5-17.5)
[2018-06-10 05:40] LABS: ANION GAP 10 MEQ/L (8-16); BLOOD UREA NITROGEN 23 MG/DL (7-18); CALCIUM LEVEL 7.4 MG/DL (8.8-10.2); CARBON DIOXIDE LEVEL 23 MEQ/L (21-32); CHLORIDE LEVEL 117 MEQ/L (98-107); CREATININE FOR GFR 1.05 MG/DL (0.70-1.30); GLOMERULAR FILTRATION RATE > 60.0 (>35); GLUCOSE, FASTING 82 MG/DL (70-100); SODIUM LEVEL 150 MEQ/L (136-145)
[2018-06-10] MEDS: NOREPINEPHRINE BITARTRATE 8 MG in D5W 492 ML IV (08:23)
[2018-06-10] MEDS: CLOPIDOGREL 75 MG TAB PO (08:29)
[2018-06-10] MEDS: NS 1,000 ML IV ×2 (08:29→09:32)
[2018-06-10] MEDS: NS 0.45% 1,000 ML IV ×2 (12:24→20:30)
[2018-06-10] MEDS ORDERED: SODIUM CHLORIDE 0.9% INJ 10 ML SYR IV ×2 (14:45→22:00)
[2018-06-10] MEDS ORDERED: SLF 3 ML SYR IV (14:45)
[2018-06-10] MEDS: CALCIUM GLUCONATE 1,000 MG in D5W MINI-BAG PLUS 100 ML IV (16:54)
[2018-06-10] MEDS: CEFEPIME HCL 1 GM in D5W MINI-BAG PLUS 50 ML IV (20:31)
[2018-06-10] MEDS: SLF 3 ML SYR IV (21:11)
[2018-06-10] MEDS: SERTRALINE 100 MG TAB PO (21:11)
[2018-06-10] MEDS: ATORVASTATIN 20 MG TAB PO (21:11)
[2018-06-11] MEDS: NS 0.45% 1,000 ML IV ×4 (03:17→23:28)
[2018-06-11 05:06] LABS: HEMATOCRIT 29.9 % (42.0-52.0); HEMOGLOBIN 9.1 g/dl (13.5-17.5); MEAN CORPUSCULAR HEMOGLOBIN 27.2 pg (27.0-33.0); MEAN CORPUSCULAR HGB CONC 30.4 g/dl (32.0-36.5); MEAN CORPUSCULAR VOLUME 89.5 fl (80.0-96.0); PLATELET COUNT, AUTOMATED 165 10^3/uL (150-450); RED BLOOD COUNT 3.34 10^6/uL (4.30-6.10); RED CELL DISTRIBUTION WIDTH 15.7 % (11.5-14.5)
[2018-06-11 05:27] LABS: ANION GAP 7 MEQ/L (8-16); BLOOD UREA NITROGEN 17 MG/DL (7-18); CALCIUM LEVEL 8.2 MG/DL (8.8-10.2); CARBON DIOXIDE LEVEL 22 MEQ/L (21-32); CHLORIDE LEVEL 112 MEQ/L (98-107); CREATININE FOR GFR 1.01 MG/DL (0.70-1.30); GLOMERULAR FILTRATION RATE > 60.0 (>35); GLUCOSE, FASTING 92 MG/DL (70-100); POTASSIUM SERUM 3.8 MEQ/L (3.5-5.1); SODIUM LEVEL 141 MEQ/L (136-145)
[2018-06-11] MEDS: SLF 3 ML SYR IV ×3 (06:00→21:00)
[2018-06-11] MEDS: HEPARIN SOD (PORCINE) 5000 UNITS/ML VIAL SC ×3 (06:29→21:00)
[2018-06-11] MEDS: CLOPIDOGREL 75 MG TAB PO (07:45)
[2018-06-11] MEDS: CALCIUM GLUCONATE 1,000 MG in D5W MINI-BAG PLUS 100 ML IV (07:45)
[2018-06-11 08:45] LABS: ALBUMIN 2.4 GM/DL (3.2-5.2); ALBUMIN/GLOBULIN RATIO 0.77 (1.00-1.93); ALKALINE PHOSPHATASE 100 U/L (45-117); ALT/SGPT 19 U/L (12-78); AST/SGOT 21 U/L (7-37); BILIRUBIN,DIRECT 0.1 MG/DL (0.0-0.2); BILIRUBIN,TOTAL 0.3 MG/DL (0.2-1.0); LDH LACTATE DEHYDROGENASE 217 U/L (87-241); TOTAL PROTEIN 5.5 GM/DL (6.4-8.2)
[2018-06-11 08:48] LABS: RETIC HEMOGLOBIN EQUIVALENT 23.7 pg (24-36); RETICULOCYTE # 36.3 10^9/L (17-77); RETICULOCYTE % 1.1 % (0.5-1.5)
[2018-06-11 08:52] LABS: REASON FOR REVIEW RBC MORPHOLOGY; SLIDE REVIEW Report; SOURCE PERIPHERAL SMEAR
[2018-06-11] MEDS ORDERED: LevoFLOXacin 750 MG TABLET PO (12:00)
[2018-06-11] MEDS: LevoFLOXacin 250 MG TABLET PO (16:56)
[2018-06-11] MEDS: ATORVASTATIN 20 MG TAB PO (20:12)
[2018-06-11] MEDS: SERTRALINE 100 MG TAB PO (20:12)
[2018-06-12] MEDS: HEPARIN SOD (PORCINE) 5000 UNITS/ML VIAL SC ×3 (05:09→21:03)
[2018-06-12 05:12] LABS: HEMATOCRIT 28.1 % (42.0-52.0); HEMOGLOBIN 8.5 g/dl (13.5-17.5); MEAN CORPUSCULAR HEMOGLOBIN 26.7 pg (27.0-33.0); MEAN CORPUSCULAR HGB CONC 30.2 g/dl (32.0-36.5); MEAN CORPUSCULAR VOLUME 88.4 fl (80.0-96.0); PLATELET COUNT, AUTOMATED 152 10^3/uL (150-450); RED BLOOD COUNT 3.18 10^6/uL (4.30-6.10); RED CELL DISTRIBUTION WIDTH 15.3 % (11.5-14.5); WHITE BLOOD COUNT 3.6 10^3/uL (4.0-10.0)
[2018-06-12 05:42] LABS: ANION GAP 9 MEQ/L (8-16); BLOOD UREA NITROGEN 10 MG/DL (7-18); C REACTIVE PROTEIN QUANTITATIV 7.19 MG/DL (0.00-0.30); CALCIUM LEVEL 7.9 MG/DL (8.8-10.2); CARBON DIOXIDE LEVEL 21 MEQ/L (21-32); CHLORIDE LEVEL 111 MEQ/L (98-107); CREATININE FOR GFR 0.85 MG/DL (0.70-1.30); GLOMERULAR FILTRATION RATE > 60.0 (>35); GLUCOSE, FASTING 98 MG/DL (70-100); POTASSIUM SERUM 3.9 MEQ/L (3.5-5.1); SODIUM LEVEL 141 MEQ/L (136-145)
[2018-06-12] MEDS: SLF 3 ML SYR IV ×3 (06:00→21:04)
[2018-06-12] MEDS: NS 0.45% 1,000 ML IV (06:07)
[2018-06-12 08:06] LABS: HAPTOGLOBIN 234 mg/dL (34-200)
[2018-06-12] MEDS: CALCIUM CARBONATE 500 MG CHEW U/D PO (09:11)
[2018-06-12] MEDS: CLOPIDOGREL 75 MG TAB PO (09:11)
[2018-06-12] MEDS: CARVedilol 3.125 MG TAB PO ×3 (09:43→21:00)
[2018-06-12] MEDS: LORazepam 2 MG/ML VIAL (J2060) IV (13:17)
[2018-06-12] MEDS ORDERED: LORazepam 2 MG/ML VIAL (J2060) As Ordered (13:18)
[2018-06-12 16:27] LABS: FERRITIN 154 NG/ML (26-388); IRON (FE) 43 UG/DL (65-175); PERCENT SATURATION 19.6 % (19.7-50.0); TOTAL IRON BINDING CAPACITY 219 UG/DL (250-450)
[2018-06-12 16:33] LABS: VITAMIN B12 LEVEL 523 PG/ML (247-911)
[2018-06-12 16:34] LABS: FOLATE 5.5 NG/ML (>5.4)
[2018-06-12] MEDS: LORazepam 0.5 MG TAB PO ×2 (19:03→23:50)
[2018-06-12] MEDS: SERTRALINE 100 MG TAB PO ×2 (21:00→21:01)
[2018-06-12] MEDS: QUEtiapine FUMARATE 50 MG TAB PO ×2 (21:00→21:01)
[2018-06-12] MEDS: ATORVASTATIN 20 MG TAB PO ×2 (21:00→21:03)
[2018-06-13 05:05] LABS: HEMATOCRIT 29.1 % (42.0-52.0); HEMOGLOBIN 8.9 g/dl (13.5-17.5); MEAN CORPUSCULAR HEMOGLOBIN 27.5 pg (27.0-33.0); MEAN CORPUSCULAR HGB CONC 30.6 g/dl (32.0-36.5); MEAN CORPUSCULAR VOLUME 89.8 fl (80.0-96.0); PLATELET COUNT, AUTOMATED 165 10^3/uL (150-450); RED BLOOD COUNT 3.24 10^6/uL (4.30-6.10); RED CELL DISTRIBUTION WIDTH 15.3 % (11.5-14.5); WHITE BLOOD COUNT 4.3 10^3/uL (4.0-10.0)
[2018-06-13] MEDS: SLF 3 ML SYR IV ×3 (05:12→21:23)
[2018-06-13 05:25] LABS: ANION GAP 8 MEQ/L (8-16); BLOOD UREA NITROGEN 10 MG/DL (7-18); C REACTIVE PROTEIN QUANTITATIV 4.75 MG/DL (0.00-0.30); CALCIUM LEVEL 8.1 MG/DL (8.8-10.2); CARBON DIOXIDE LEVEL 22 MEQ/L (21-32); CHLORIDE LEVEL 112 MEQ/L (98-107); GLOMERULAR FILTRATION RATE > 60.0 (>35); GLUCOSE, FASTING 88 MG/DL (70-100); POTASSIUM SERUM 3.5 MEQ/L (3.5-5.1); SODIUM LEVEL 142 MEQ/L (136-145)
[2018-06-13] MEDS: LevoFLOXacin 250 MG TABLET PO (06:00)
[2018-06-13] MEDS: HEPARIN SOD (PORCINE) 5000 UNITS/ML VIAL SC ×3 (06:00→21:23)
[2018-06-13] MEDS: LevoFLOXacin IV 750 MG in APPROPRIATE DILUENT 1 EA IV (06:43)
[2018-06-13] MEDS: CLOPIDOGREL 75 MG TAB PO (08:56)
[2018-06-13] MEDS: FERROUS SULFATE 325MG TAB PO (08:56)
[2018-06-13] MEDS: CARVedilol 3.125 MG TAB PO ×2 (08:57→21:22)
[2018-06-13] MEDS: QUEtiapine FUMARATE 50 MG TAB PO ×2 (08:57→21:22)
[2018-06-13] MEDS: ASCORBIC ACID 500 MG TAB PO (08:57)
[2018-06-13 10:35] LABS: CPK CREATINE PHOSPHOKINASE 30 U/L (39-308); MB/CK RELATIVE INDEX 3.67 (< OR =4); TROPONIN I 0.02 NG/ML (< 0.10)
[2018-06-13 17:54] LABS: CK-MB VALUE MASS < 1.0 NG/ML (<3.6); CPK CREATINE PHOSPHOKINASE 23 U/L (39-308); MB/CK RELATIVE INDEX 4.35 (< OR =4); TROPONIN I < 0.02 NG/ML (< 0.10)
[2018-06-13] MEDS: ATORVASTATIN 20 MG TAB PO (21:22)
[2018-06-13] MEDS: SERTRALINE 100 MG TAB PO (21:22)
[2018-06-13] MEDS: LORazepam 0.5 MG TAB PO (21:22)
[2018-06-14 00:33] LABS: CK-MB VALUE MASS < 1.0 NG/ML (<3.6); CPK CREATINE PHOSPHOKINASE 20 U/L (39-308); TROPONIN I < 0.02 NG/ML (< 0.10)
[2018-06-14] MEDS: HEPARIN SOD (PORCINE) 5000 UNITS/ML VIAL SC ×3 (05:30→21:46)
[2018-06-14] MEDS: SLF 3 ML SYR IV ×3 (05:30→21:47)
[2018-06-14 06:24] LABS: HEMATOCRIT 28.7 % (42.0-52.0); HEMOGLOBIN 8.8 g/dl (13.5-17.5); MEAN CORPUSCULAR HEMOGLOBIN 27.4 pg (27.0-33.0); MEAN CORPUSCULAR HGB CONC 30.7 g/dl (32.0-36.5); MEAN CORPUSCULAR VOLUME 89.4 fl (80.0-96.0); PLATELET COUNT, AUTOMATED 156 10^3/uL (150-450); RED BLOOD COUNT 3.21 10^6/uL (4.30-6.10); RED CELL DISTRIBUTION WIDTH 15.4 % (11.5-14.5); WHITE BLOOD COUNT 3.6 10^3/uL (4.0-10.0)
[2018-06-14 06:50] LABS: ANION GAP 8 MEQ/L (8-16); BLOOD UREA NITROGEN 8 MG/DL (7-18); C REACTIVE PROTEIN QUANTITATIV 4.38 MG/DL (0.00-0.30); CARBON DIOXIDE LEVEL 23 MEQ/L (21-32); CHLORIDE LEVEL 115 MEQ/L (98-107); CREATININE FOR GFR 0.99 MG/DL (0.70-1.30); GLOMERULAR FILTRATION RATE > 60.0 (>35); GLUCOSE, FASTING 83 MG/DL (70-100); POTASSIUM SERUM 3.7 MEQ/L (3.5-5.1); SODIUM LEVEL 146 MEQ/L (136-145)
[2018-06-14] MEDS: QUEtiapine FUMARATE 50 MG TAB PO ×2 (09:00→21:47)
[2018-06-14] MEDS: CLOPIDOGREL 75 MG TAB PO (09:00)
[2018-06-14] MEDS: CARVedilol 3.125 MG TAB PO ×2 (09:00→21:47)
[2018-06-14] MEDS: ATORVASTATIN 20 MG TAB PO (21:46)
[2018-06-14] MEDS: SERTRALINE 100 MG TAB PO (21:46)
[2018-06-15] MEDS: LORazepam 0.5 MG TAB PO ×2 (00:58→18:07)
[2018-06-15] MEDS: LevoFLOXacin 250 MG TABLET PO (05:21)
[2018-06-15] MEDS: SLF 3 ML SYR IV ×3 (05:22→22:10)
[2018-06-15] MEDS: HEPARIN SOD (PORCINE) 5000 UNITS/ML VIAL SC ×3 (05:22→22:10)
[2018-06-15 05:55] LABS: HEMATOCRIT 30.9 % (42.0-52.0); HEMOGLOBIN 9.4 g/dl (13.5-17.5); MEAN CORPUSCULAR HEMOGLOBIN 27.1 pg (27.0-33.0); MEAN CORPUSCULAR HGB CONC 30.4 g/dl (32.0-36.5); PLATELET COUNT, AUTOMATED 146 10^3/uL (150-450); RED BLOOD COUNT 3.47 10^6/uL (4.30-6.10); RED CELL DISTRIBUTION WIDTH 15.7 % (11.5-14.5)
[2018-06-15 06:24] LABS: ANION GAP 7 MEQ/L (8-16); BLOOD UREA NITROGEN 10 MG/DL (7-18); C REACTIVE PROTEIN QUANTITATIV 4.06 MG/DL (0.00-0.30); CALCIUM LEVEL 8.3 MG/DL (8.8-10.2); CARBON DIOXIDE LEVEL 24 MEQ/L (21-32); CHLORIDE LEVEL 111 MEQ/L (98-107); CREATININE FOR GFR 0.88 MG/DL (0.70-1.30); GLOMERULAR FILTRATION RATE > 60.0 (>35); GLUCOSE, FASTING 99 MG/DL (70-100); POTASSIUM SERUM 3.6 MEQ/L (3.5-5.1); SODIUM LEVEL 142 MEQ/L (136-145)
[2018-06-15] MEDS: CARVedilol 3.125 MG TAB PO ×2 (08:46→20:17)
[2018-06-15] MEDS: QUEtiapine FUMARATE 50 MG TAB PO ×2 (08:46→20:17)
[2018-06-15] MEDS: CLOPIDOGREL 75 MG TAB PO (08:46)
[2018-06-15] MEDS: ATORVASTATIN 20 MG TAB PO (20:17)
[2018-06-15] MEDS: SERTRALINE 100 MG TAB PO (20:17)
[2018-06-16] MEDS: HEPARIN SOD (PORCINE) 5000 UNITS/ML VIAL SC ×3 (05:18→22:16)
[2018-06-16] MEDS: SLF 3 ML SYR IV ×3 (05:18→22:16)
[2018-06-16 05:54] LABS: HEMATOCRIT 29.9 % (42.0-52.0); HEMOGLOBIN 9.1 g/dl (13.5-17.5); MEAN CORPUSCULAR HEMOGLOBIN 27.4 pg (27.0-33.0); MEAN CORPUSCULAR HGB CONC 30.4 g/dl (32.0-36.5); MEAN CORPUSCULAR VOLUME 90.1 fl (80.0-96.0); PLATELET COUNT, AUTOMATED 151 10^3/uL (150-450); RED BLOOD COUNT 3.32 10^6/uL (4.30-6.10); RED CELL DISTRIBUTION WIDTH 15.9 % (11.5-14.5); WHITE BLOOD COUNT 4.9 10^3/uL (4.0-10.0)
[2018-06-16 06:18] LABS: ANION GAP 6 MEQ/L (8-16); BLOOD UREA NITROGEN 10 MG/DL (7-18); C REACTIVE PROTEIN QUANTITATIV 3.04 MG/DL (0.00-0.30); CALCIUM LEVEL 8.2 MG/DL (8.8-10.2); CARBON DIOXIDE LEVEL 27 MEQ/L (21-32); CHLORIDE LEVEL 110 MEQ/L (98-107); CREATININE FOR GFR 0.95 MG/DL (0.70-1.30); GLOMERULAR FILTRATION RATE > 60.0 (>35); GLUCOSE, FASTING 96 MG/DL (70-100); POTASSIUM SERUM 3.8 MEQ/L (3.5-5.1); SODIUM LEVEL 143 MEQ/L (136-145)
[2018-06-16] MEDS: CLOPIDOGREL 75 MG TAB PO (08:40)
[2018-06-16] MEDS: QUEtiapine FUMARATE 50 MG TAB PO ×2 (08:40→20:13)
[2018-06-16] MEDS: CARVedilol 3.125 MG TAB PO ×2 (08:41→20:13)
[2018-06-16] MEDS: SERTRALINE 100 MG TAB PO (20:13)
[2018-06-16] MEDS: ATORVASTATIN 20 MG TAB PO (20:14)
[2018-06-17] MEDS: SLF 3 ML SYR IV ×3 (05:28→22:17)
[2018-06-17] MEDS: HEPARIN SOD (PORCINE) 5000 UNITS/ML VIAL SC ×3 (05:28→22:17)
[2018-06-17 06:22] LABS: C REACTIVE PROTEIN QUANTITATIV 2.75 MG/DL (0.00-0.30)
[2018-06-17 07:38] LABS: ANION GAP 8 MEQ/L (8-16); BLOOD UREA NITROGEN 11 MG/DL (7-18); CALCIUM LEVEL 8.3 MG/DL (8.8-10.2); CARBON DIOXIDE LEVEL 24 MEQ/L (21-32); CHLORIDE LEVEL 112 MEQ/L (98-107); CREATININE FOR GFR 0.92 MG/DL (0.70-1.30); GLOMERULAR FILTRATION RATE > 60.0 (>35); GLUCOSE, FASTING 82 MG/DL (70-100); HEMATOCRIT 30.1 % (42.0-52.0); HEMOGLOBIN 9.2 g/dl (13.5-17.5); MEAN CORPUSCULAR HEMOGLOBIN 27.6 pg (27.0-33.0); MEAN CORPUSCULAR HGB CONC 30.6 g/dl (32.0-36.5); MEAN CORPUSCULAR VOLUME 90.4 fl (80.0-96.0); PLATELET COUNT, AUTOMATED 155 10^3/uL (150-450); POTASSIUM SERUM 3.9 MEQ/L (3.5-5.1); RED BLOOD COUNT 3.33 10^6/uL (4.30-6.10); RED CELL DISTRIBUTION WIDTH 16.3 % (11.5-14.5); SODIUM LEVEL 144 MEQ/L (136-145); WHITE BLOOD COUNT 3.8 10^3/uL (4.0-10.0)
[2018-06-17] MEDS: CLOPIDOGREL 75 MG TAB PO (08:01)
[2018-06-17] MEDS: QUEtiapine FUMARATE 50 MG TAB PO ×2 (08:02→20:26)
[2018-06-17] MEDS: CARVedilol 3.125 MG TAB PO ×2 (08:02→20:27)
[2018-06-17] MEDS: SERTRALINE 100 MG TAB PO (20:26)
[2018-06-17] MEDS: ATORVASTATIN 20 MG TAB PO (20:26)
[2018-06-18] MEDS: SLF 3 ML SYR IV ×3 (05:47→21:22)
[2018-06-18] MEDS: HEPARIN SOD (PORCINE) 5000 UNITS/ML VIAL SC ×3 (05:47→21:21)
[2018-06-18 06:11] LABS: HEMATOCRIT 29.4 % (42.0-52.0); MEAN CORPUSCULAR HEMOGLOBIN 27.5 pg (27.0-33.0); MEAN CORPUSCULAR HGB CONC 30.6 g/dl (32.0-36.5); MEAN CORPUSCULAR VOLUME 89.9 fl (80.0-96.0); PLATELET COUNT, AUTOMATED 156 10^3/uL (150-450); RED BLOOD COUNT 3.27 10^6/uL (4.30-6.10); RED CELL DISTRIBUTION WIDTH 16.5 % (11.5-14.5); WHITE BLOOD COUNT 3.3 10^3/uL (4.0-10.0)
[2018-06-18 06:31] LABS: ANION GAP 6 MEQ/L (8-16); BLOOD UREA NITROGEN 12 MG/DL (7-18); CALCIUM LEVEL 8.4 MG/DL (8.8-10.2); CARBON DIOXIDE LEVEL 28 MEQ/L (21-32); CHLORIDE LEVEL 110 MEQ/L (98-107); CREATININE FOR GFR 0.96 MG/DL (0.70-1.30); GLOMERULAR FILTRATION RATE > 60.0 (>35); GLUCOSE, FASTING 100 MG/DL (70-100); POTASSIUM SERUM 3.9 MEQ/L (3.5-5.1); SODIUM LEVEL 144 MEQ/L (136-145)
[2018-06-18] MEDS: CARVedilol 3.125 MG TAB PO ×2 (09:00→20:28)
[2018-06-18] MEDS: CLOPIDOGREL 75 MG TAB PO (10:29)
[2018-06-18] MEDS: QUEtiapine FUMARATE 50 MG TAB PO ×2 (10:29→20:28)
[2018-06-18] MEDS: ATORVASTATIN 20 MG TAB PO (20:28)
[2018-06-18] MEDS: SERTRALINE 100 MG TAB PO (20:28)
[2018-06-19] MEDS: HEPARIN SOD (PORCINE) 5000 UNITS/ML VIAL SC ×3 (05:24→22:19)
[2018-06-19] MEDS: SLF 3 ML SYR IV ×3 (05:25→22:18)
[2018-06-19 05:52] LABS: HEMATOCRIT 29.7 % (42.0-52.0); HEMOGLOBIN 9.2 g/dl (13.5-17.5); MEAN CORPUSCULAR HEMOGLOBIN 27.3 pg (27.0-33.0); MEAN CORPUSCULAR VOLUME 88.1 fl (80.0-96.0); PLATELET COUNT, AUTOMATED 152 10^3/uL (150-450); RED BLOOD COUNT 3.37 10^6/uL (4.30-6.10); RED CELL DISTRIBUTION WIDTH 16.5 % (11.5-14.5); WHITE BLOOD COUNT 3.6 10^3/uL (4.0-10.0)
[2018-06-19 06:16] LABS: ANION GAP 7 MEQ/L (8-16); BLOOD UREA NITROGEN 13 MG/DL (7-18); CALCIUM LEVEL 8.3 MG/DL (8.8-10.2); CARBON DIOXIDE LEVEL 26 MEQ/L (21-32); CHLORIDE LEVEL 109 MEQ/L (98-107); CREATININE FOR GFR 0.92 MG/DL (0.70-1.30); GLOMERULAR FILTRATION RATE > 60.0 (>35); GLUCOSE, FASTING 81 MG/DL (70-100); POTASSIUM SERUM 3.8 MEQ/L (3.5-5.1); SODIUM LEVEL 142 MEQ/L (136-145)
[2018-06-19] MEDS: CLOPIDOGREL 75 MG TAB PO (09:19)
[2018-06-19] MEDS: QUEtiapine FUMARATE 50 MG TAB PO ×2 (09:20→20:26)
[2018-06-19] MEDS: CARVedilol 3.125 MG TAB PO ×2 (09:20→20:25)
[2018-06-19] MEDS: LORazepam 2 MG/ML VIAL (J2060) IV (12:13)
[2018-06-19] MEDS: ATORVASTATIN 20 MG TAB PO (20:25)
[2018-06-19] MEDS: SERTRALINE 100 MG TAB PO (20:26)
[2018-06-20] MEDS: SLF 3 ML SYR IV (05:11)
[2018-06-20] MEDS: HEPARIN SOD (PORCINE) 5000 UNITS/ML VIAL SC (05:11)
[2018-06-20 06:48] LABS: HEMATOCRIT 31.2 % (42.0-52.0); HEMOGLOBIN 9.6 g/dl (13.5-17.5); MEAN CORPUSCULAR HEMOGLOBIN 27.7 pg (27.0-33.0); MEAN CORPUSCULAR HGB CONC 30.8 g/dl (32.0-36.5); MEAN CORPUSCULAR VOLUME 89.9 fl (80.0-96.0); PLATELET COUNT, AUTOMATED 161 10^3/uL (150-450); RED BLOOD COUNT 3.47 10^6/uL (4.30-6.10); RED CELL DISTRIBUTION WIDTH 16.6 % (11.5-14.5); WHITE BLOOD COUNT 3.7 10^3/uL (4.0-10.0)
[2018-06-20 07:09] LABS: ANION GAP 6 MEQ/L (8-16); BLOOD UREA NITROGEN 10 MG/DL (7-18); CARBON DIOXIDE LEVEL 26 MEQ/L (21-32); CHLORIDE LEVEL 110 MEQ/L (98-107); CREATININE FOR GFR 0.89 MG/DL (0.70-1.30); GLOMERULAR FILTRATION RATE > 60.0 (>35); GLUCOSE, FASTING 82 MG/DL (70-100); SODIUM LEVEL 142 MEQ/L (136-145)
[2018-06-20] MEDS: CARVedilol 3.125 MG TAB PO (09:37)
[2018-06-20] MEDS: CLOPIDOGREL 75 MG TAB PO (09:37)
[2018-06-20] MEDS: QUEtiapine FUMARATE 50 MG TAB PO (09:37)
== END 2018-06-20 11:59 | disposition home health service (06) | DRG 871 ==
LOC: M MSPAV 06-13 17:05 → M ED 10:56 → M ED INP 15:57 → M ICU 17:50
PROC: 02HV33Z Insertion of Infusion Device into Superior Vena Cava, Percutaneous Approach (ICD-10-PCS; principal; 2018-06-09)
DX: A41.9 Sepsis, unspecified organism (principal); G93.41 Metabolic encephalopathy; R65.21 Severe sepsis with septic shock; N39.0 Urinary tract infection, site not specified; N17.9 Acute kidney failure, unspecified; E87.0 Hyperosmolality and hypernatremia; F02.81 Dementia in other diseases classified elsewhere, unspecified severity, with behavioral disturbance; C34.90 Malignant neoplasm of unspecified part of unspecified bronchus or lung; S32.010A Wedge compression fracture of first lumbar vertebra, initial encounter for closed fracture; Z66 Do not resuscitate; I10 Essential (primary) hypertension; I48.91 Unspecified atrial fibrillation; F32.9 Major depressive disorder, single episode, unspecified; F41.9 Anxiety disorder, unspecified; G30.9 Alzheimer's disease, unspecified; B96.1 Klebsiella pneumoniae [K. pneumoniae] as the cause of diseases classified elsewhere; I25.10 Atherosclerotic heart disease of native coronary artery without angina pectoris; Z79.899 Other long term (current) drug therapy; Z86.718 Personal history of other venous thrombosis and embolism; Z85.038 Personal history of other malignant neoplasm of large intestine; Z93.3 Colostomy status; Z85.46 Personal history of malignant neoplasm of prostate; Z79.82 Long term (current) use of aspirin; E78.5 Hyperlipidemia, unspecified; W18.30XA Fall on same level, unspecified, initial encounter; Y92.009 Unspecified place in unspecified non-institutional (private) residence as the place of occurrence of the external cause; E83.51 Hypocalcemia

== ENCOUNTER → 2018-07-14 | Outpatient (REF) | payer MEDICARE, MEDICAID ==
[~2018-07-14] MED LIST changes: +ENSULIQ10 PO; +LORA0.5T11 PO; +MEMA1TAB PO; +MUCI600T37 PO; +NITR100C2 PO; +PLAV1TAB2 PO; +QUET5TAB PO
[2018-07-14 18:21] LABS: BASO % 0.5 % (0.0-1.0); EOS # 0.1 10^3/uL (0.0-0.50); EOS % 3.2 % (0.0-3.0); HEMATOCRIT 37.7 % (42.0-52.0); HEMOGLOBIN 11.7 g/dl (13.5-17.5); LYMPH # 1.2 10^3/uL (1.5-4.5); LYMPH % 26.7 % (24.0-44.0); MEAN CORPUSCULAR HEMOGLOBIN 27.7 pg (27.0-33.0); MEAN CORPUSCULAR VOLUME 89.3 fl (80.0-96.0); MONO # 0.4 10^3/uL (0.0-0.8); MONO % 8.1 % (0.0-5.0); NEUTROPHILS # 2.7 10^3/uL (1.8-7.7); NEUTROPHILS % 61.3 % (36.0-66.0); PLATELET COUNT, AUTOMATED 124 10^3/uL (150-450); RED BLOOD COUNT 4.22 10^6/uL (4.30-6.10); WHITE BLOOD COUNT 4.3 10^3/uL (4.0-10.0)
[2018-07-14 18:29] LABS: ALBUMIN 3.1 GM/DL (3.2-5.2); ALT/SGPT 17 U/L (12-78); BILIRUBIN,TOTAL 0.4 MG/DL (0.2-1.0); BLOOD UREA NITROGEN 19 MG/DL (7-18); CALCIUM LEVEL 8.4 MG/DL (8.8-10.2); CARBON DIOXIDE LEVEL 25 MEQ/L (21-32); CHLORIDE LEVEL 111 MEQ/L (98-107); CHOLESTEROL LEVEL 100 MG/DL (<200); CHOLESTEROL RISK RATIO 3.333 (<5); CREATININE FOR GFR 0.92 MG/DL (0.70-1.30); GLOMERULAR FILTRATION RATE > 60.0 (>35); GLUCOSE, FASTING 94 MG/DL (70-100); HDL CHOLESTEROL 30 MG/DL (>40); LDL CHOLESTEROL 52 MG/DL (<100); NON-HDL-C 70 MG/DL; POTASSIUM SERUM 4.1 MEQ/L (3.5-5.1); SODIUM LEVEL 144 MEQ/L (136-145); THYROID STIMULATING HORMONE 0.421 uIU/ML (0.358-3.740); TRIGLYCERIDES LEVEL 92 MG/DL (<150)
== END ==
LOC: M LAB REF 16:11
PROVIDERS: ATTEND Physician Assistant
DX: I48.0 Paroxysmal atrial fibrillation (principal); I25.10 Atherosclerotic heart disease of native coronary artery without angina pectoris

== ENCOUNTER → 2018-07-15 | Outpatient (REF) | payer MEDICARE, MEDICAID ==
[2018-07-15 15:52] LABS: AMORPHOUS SEDIMENT SMALL (NEGATIVE); APPEARANCE, URINE CLOUDY (CLEAR); BACTERIA, URINE AUTO 1+ (NEGATIVE); BILIRUBIN, URINE AUTO NEGATIVE (NEGATIVE); BLOOD, URINE BLOOD 3+ (NEGATIVE); CALCIUM OXALATE CRYSTALS SMALL; COLOR, URINE YELLOW (YELLOW); GLUCOSE, URINE (UA) AUTO NEGATIVE (NEGATIVE); GRANULAR CAST, URINE AUTO 5 /LPF; KETONE, URINE AUTO NEGATIVE (NEGATIVE); LEUKOCYTE ESTERASE, URINE AUTO 3+ (NEGATIVE); MUCUS, URINE SMALL (NEGATIVE); NITRITE, URINE AUTO POSITIVE (NEGATIVE); PROTEIN, URINE AUTO 1+ mg/dL (NEGATIVE); RBC, URINE AUTO 71 /HPF (0-3); SQUAMOUS EPITHELIAL CELL UR AU 1 /HPF (0-6); UROBILINOGEN, URINE AUTO 0.2 mg/dL (0.0-2.0); WBC, URINE AUTO TNTC /HPF (0-3)
== END ==
LOC: M LAB REF 15:31
PROVIDERS: ATTEND Physician Assistant
DX: R31.9 Hematuria, unspecified (principal)

== ENCOUNTER 2018-07-20 10:45 | Inpatient (IN) | payer MEDICARE, OTHER ==
[~2018-07-20] VITALS: Ht 182.9 cm; Wt 62.6 kg
[~2018-07-20 10:45] MED LIST changes: -NITR100C2 PO
[2018-07-20] MEDS ORDERED: LISI-542 PO (11:03)
[2018-07-20] MEDS ORDERED: NS 1,880 ML in APPROPRIATE DILUENT 1 EA IV ONE (11:30)
[2018-07-20] MEDS ORDERED: cefTRIAXone SOD 2 GM in D5W MINI-BAG PLUS 50 ML IV ONE (11:30)
--- NOTE | 2018-07-20 11:30 | REP ---
CT Head without contrast HISTORY: altered mental status COMPARISON: 06/09/2018 An area of decreased attenuation is present in the right frontal lobe. There is dilatation of the overlying cortical sulci. This represents encephalomalacia. Areas of decreased attenuation are present in the periventricular white matter. This represents small-vessel ischemic disease. There is no intraparenchymal hemorrhage, acute infarct, mass or midline shift. The ventricular system and cortical sulci as well as subarachnoid space in the posterior fossa are dilated consistent with mild volume loss. Cavum septi pellucidi and vergae are present. There is no extra cerebral collection. There is no fracture. The visualized sinuses are clear. IMPRESSION: 1. Right frontal lobe encephalomalacia. 2. Small vessel ischemic disease. 3. Mild volume loss. Electronically Signed by Gerardo Swenson MD 07/20/2018 11:22 A
[2018-07-20 11:44] LABS: VENOUS BASE EXCESS -0.6 (-2.0-2.0); VENOUS HCO3 25.4 MEQ/L (23.0-27.0); VENOUS O2 SATURATION 73.9 % (60.0-80.0); VENOUS PARTIAL PRESSURE CO2 47.2 mmHg (38.0-50.0); VENOUS PARTIAL PRESSURE O2 43.8 mmHg (30.0-50.0); VENOUS PH 7.349 UNITS (7.330-7.430); VENOUS STANDARD HCO3 23.4 MEQ/L; VENOUS TOTAL CO2 26.9 MEQ/L (24.0-28.0)
[2018-07-20] MEDS ORDERED: ERYTHROMYCIN OPHTH OINT OS ONE (11:45)
[2018-07-20 11:49] LABS: BASO % 0.4 % (0.0-1.0); EOS # 0.2 10^3/uL (0.0-0.50); EOS % 3.1 % (0.0-3.0); HEMATOCRIT 41.9 % (42.0-52.0); HEMOGLOBIN 12.9 g/dl (13.5-17.5); LYMPH # 1.3 10^3/uL (1.5-4.5); LYMPH % 26.6 % (24.0-44.0); MEAN CORPUSCULAR HEMOGLOBIN 27.7 pg (27.0-33.0); MEAN CORPUSCULAR HGB CONC 30.8 g/dl (32.0-36.5); MEAN CORPUSCULAR VOLUME 90.1 fl (80.0-96.0); MONO # 0.4 10^3/uL (0.0-0.8); MONO % 7.5 % (0.0-5.0); NEUTROPHILS % 62.2 % (36.0-66.0); PLATELET COUNT, AUTOMATED 129 10^3/uL (150-450); RED BLOOD COUNT 4.65 10^6/uL (4.30-6.10); WHITE BLOOD COUNT 4.8 10^3/uL (4.0-10.0)
[2018-07-20 12:15] LABS: OSMOLALITY SERUM 308 MOSM/KG (280-301)
--- NOTE | 2018-07-20 12:15 | REP ---
Chest one-view HISTORY: Altered mental status Comparison: 06/09/2018 The lungs are clear. The cardiac silhouette is enlarged. The pulmonary vasculature is normal in appearance. Impression: Cardiomegaly. Electronically Signed by Gerardo Swenson MD 07/20/2018 12:07 P
[2018-07-20 12:19] LABS: ACETAMINOPHEN LEVEL < 2.0 UG/ML (10.0-30.0); ALBUMIN 3.7 GM/DL (3.2-5.2); ALT/SGPT 19 U/L (12-78); BILIRUBIN,DIRECT 0.2 MG/DL (0.0-0.2); BILIRUBIN,TOTAL 0.6 MG/DL (0.2-1.0); BLOOD UREA NITROGEN 23 MG/DL (7-18); CALCIUM LEVEL 8.7 MG/DL (8.8-10.2); CARBON DIOXIDE LEVEL 26 MEQ/L (21-32); CHLORIDE LEVEL 113 MEQ/L (98-107); CK-MB VALUE MASS < 1.0 NG/ML (<3.6); CPK CREATINE PHOSPHOKINASE 18 U/L (39-308); ETHYL ALCOHOL (ETHANOL) < 0.003 % (0.000-0.010); GLOMERULAR FILTRATION RATE > 60.0 (>35); GLUCOSE, FASTING 92 MG/DL (70-100); MB/CK RELATIVE INDEX 5.56 (< OR =4); POTASSIUM SERUM 4.4 MEQ/L (3.5-5.1); SALICYLATE LEVEL < 1.7 MG/DL (5.0-30.0); SODIUM LEVEL 148 MEQ/L (136-145); THYROID STIMULATING HORMONE 0.918 uIU/ML (0.358-3.740); TOTAL PROTEIN 6.7 GM/DL (6.4-8.2); TROPONIN I < 0.02 NG/ML (< 0.10)
[2018-07-20 12:29] LABS: BILIRUBIN, URINE MANUAL NEGATIVE (NEGATIVE); GLUCOSE, URINE (UA) MANUAL NEGATIVE (NEGATIVE); KETONE, URINE MANUAL NEGATIVE (NEGATIVE); UROBILINOGEN, URINE MANUAL NORMAL (NORMAL)
[2018-07-20 12:30] LABS: BACTERIA, URINE MOD AMOUNT; CALCIUM OXALATE CRYSTALS,URINE LARGE AMOUNT /hpf; HYALINE CAST, URINE NONE SEEN /lpf (0-1); RBC, URINE 15-20 /hpf (0-3); SQUAMOUS EPITHELIAL CELL URINE NONE SEEN /hpf (SMALL AMT)
[2018-07-20 12:45] LABS: AMPHETAMINES LEVEL URINE NEGATIVE (NEGATIVE); BARBITURATES URINE NEGATIVE (NEGATIVE); BENZODIAZEPINES URINE NEGATIVE (NEGATIVE); CANNABINOIDS URINE NEGATIVE (NEGATIVE); COCAINE METABOLITE URINE NEGATIVE (NEGATIVE); METHADONE URINE NEGATIVE (NEGATIVE); OPIATES URINE NEGATIVE (NEGATIVE); PHENCYCLIDINE URINE NEGATIVE (NEGATIVE)
[2018-07-20] MEDS ORDERED: NITROGLYCERIN 0.4 MG SUBL TABLET SL PRN (13:15)
[2018-07-20] MEDS ORDERED: LORazepam 0.5 MG TAB PO STA (13:25)
[2018-07-20] MEDS ORDERED: CARV6.25 PO (13:52)
[2018-07-20] MEDS ORDERED: QUET5TAB PO (13:52)
[2018-07-20] MEDS ORDERED: NITR100C2 PO (13:52)
[2018-07-20 15:21] VITALS: BP 122/81
--- NOTE | 2018-07-20 15:37 | HPE ---
DATE OF ADMISSION: 07/20/2018 83-year-old male with past medical history of advanced dementia, history of recurrent urinary tract infection (UTI)s, coronary artery disease, status post PCI, presents to the emergency room with decreased oral intake, according to the family, and increasing aggressive behavior. The patient had similar symptoms when he was admitted on 06/09/2018. He was found to have a urinary tract infection (UTI), specifically Klebsiella oxytoca, was treated and completed antibiotics and was discharged on 06/22/2018. However, the family says that over the past week, the patient has progressively diminished his appetite and had similar symptoms which made them on edge and brought the patient to the emergency room feeling that he be having another infectious process. In the emergency room, his urinalysis was strongly positive for UTI and he was started on IV Rocephin. The patient also appeared very dehydrated and was started on normal saline. No history could be obtained from the patient due to his advanced dementia. All the information I received was from the chart, ER attending and family members. The patient at this time is drinking sips of OpGen water that the family is providing and appears mildly agitated. He will be admitted for further management. PAST MEDICAL HISTORY: 1. Coronary artery disease, status post PCI. 2. History of deep vein thrombosis (DVT), status post IVC filter. 3. History of colon cancer, status post colectomy with colostomy bag placed in 1994. 4. History of prostate cancer, status post transurethral resection of prostate (TURP) and is being seen by Dr. Parker. 5. Status post prostatectomy and radiation therapy as well. 6. History of advanced dementia. 7. History of recent clinical diagnosis of lung cancer, which the family does not want any intervention at this time for a tissue biopsy. 8. Atrial fibrillation. Not on anticoagulation. ALLERGIES: He has no known drug allergies. FAMILY HISTORY: Could not be obtained by the patient, he is demented. SOCIAL HISTORY: Could not be obtained by the patient, he is demented. MEDICATIONS: He takes at home: - atorvastatin 40 mg daily at bedtime - Coreg 6.25 mg orally twice a day - Plavix 75 mg by mouth daily - Ensure one can by mouth three times a day - Lisinopril 2.5 mg by mouth daily - Ativan as needed - amantadine 10 mg by mouth twice a day - nitrofurantoin 100 mg by mouth twice a day - nitroglycerin 0.4 mg sublingual as needed - Seroquel 50 mg by mouth twice a day - sertraline 100 mg by mouth at bedtime REVIEW OF SYSTEMS: Could not be assessed, the patient is demented. PHYSICAL EXAMINATION: VITAL SIGNS: Blood pressure 95/73, heart rate is 91 and irregular, respiratory rate is 23, temperature 96.6 axillary, oxygen saturation is 97% on room air. Head is atraumatic, normocephalic. Dry mucous membranes. Temporal wasting noted. Neck is supple with no jugular venous distention (JVD). Lungs are clear to auscultation. S1, S2 audible. No murmurs appreciated. Abdomen is soft. Positive bowel sounds. Colostomy bag is intact. No pedal edema. Skin examination: Poor turgor but intact. No pedal edema. Neurologic examination, the patient is awake, alert and oriented times zero. LABORATORIES: WBC 4.8, hemoglobin is 12.9, hematocrit is 41.9, platelets are 129,000. Sodium 148, potassium 4.4, chloride 113, CO2 of 26, anion gap 9, BUN 23, creatinine 1.00, serum osmolality is 308, fasting glucose 92. TSH 0.918. Urinalysis strongly positive for UTI. CT of the head shows right frontal lobe encephalomalacia. Small vessel ischemic disease. Mild volume loss. No bleed or mass effect. Chest x-ray shows cardiomegaly . No consolidation. IMPRESSION: 1. Toxic metabolic encephalopathy. 2. Urinary tract infection (UTI). 3. Hypernatremia. PLAN: The patient will be admitted to the medical/surgical floor. Due to his soft pressures, I would like to give him half normal saline, but for now I will give him normal saline until his blood pressure improves and I am holding his blood pressure medications for now. Once his blood pressure improves, we will restart his blood pressure medications and I would like to switch him to half normal saline. We will continue to encourage oral fluid intake, as family is doing at bedside at this time. Other than the antihypertensive, I will continue the rest of his medications. I am going to start him on IV meropenem 1 gram daily in lieu of the previous urine culture. I will also put him on a one-to-one sitter since he has been showing aggressive behavior and continuous care on the medical/surgical floor.
[2018-07-20] MEDS: CLOPIDOGREL 75 MG TAB PO SCH (15:46)
[2018-07-20] MEDS: ENOXAPARIN 40 MG/0.4 ML SYRINGE (J1650) SC SCH (15:47)
[2018-07-20] MEDS: NS 1,000 ML IV SCH (15:48)
[2018-07-20] MEDS: MEROPENEM INJ 1 GM in APPROPRIATE DILUENT 1 EA IV SCH ×2 (15:48→21:54)
[2018-07-20] MEDS: SERTRALINE 100 MG TAB PO SCH (21:54)
[2018-07-20] MEDS: QUEtiapine FUMARATE 50 MG TAB PO SCH (21:54)
[2018-07-20] MEDS: ATORVASTATIN 20 MG TAB PO SCH (21:54)
[2018-07-20] MEDS: MEMANTINE 5MG TABLET (NAMENDA) PO SCH (21:54)
[2018-07-20 22:00] VITALS: BP 157/60
[2018-07-21] MEDS: NS 1,000 ML IV SCH (01:19)
[2018-07-21 06:00] VITALS: BP 101/51
[2018-07-21] MEDS: MEROPENEM INJ 1 GM in APPROPRIATE DILUENT 1 EA IV SCH (06:07)
[2018-07-21 06:17] LABS: BASO % 0.2 % (0.0-1.0); EOS # 0.1 10^3/uL (0.0-0.50); EOS % 3.2 % (0.0-3.0); HEMATOCRIT 34.2 % (42.0-52.0); HEMOGLOBIN 10.7 g/dl (13.5-17.5); LYMPH % 25.6 % (24.0-44.0); MEAN CORPUSCULAR HEMOGLOBIN 27.9 pg (27.0-33.0); MEAN CORPUSCULAR HGB CONC 31.3 g/dl (32.0-36.5); MEAN CORPUSCULAR VOLUME 89.3 fl (80.0-96.0); MONO # 0.3 10^3/uL (0.0-0.8); NEUTROPHILS # 2.5 10^3/uL (1.8-7.7); NEUTROPHILS % 62.8 % (36.0-66.0); PLATELET COUNT, AUTOMATED 119 10^3/uL (150-450); RED BLOOD COUNT 3.83 10^6/uL (4.30-6.10)
[2018-07-21 06:42] LABS: BLOOD UREA NITROGEN 19 MG/DL (7-18); CALCIUM LEVEL 8.2 MG/DL (8.8-10.2); CARBON DIOXIDE LEVEL 24 MEQ/L (21-32); CHLORIDE LEVEL 117 MEQ/L (98-107); GLOMERULAR FILTRATION RATE > 60.0 (>35); GLUCOSE, FASTING 86 MG/DL (70-100); POTASSIUM SERUM 3.6 MEQ/L (3.5-5.1); SODIUM LEVEL 148 MEQ/L (136-145)
[2018-07-21] MEDS: CLOPIDOGREL 75 MG TAB PO SCH (08:26)
[2018-07-21] MEDS: MEMANTINE 5MG TABLET (NAMENDA) PO SCH ×2 (08:27→21:49)
[2018-07-21] MEDS: ENOXAPARIN 40 MG/0.4 ML SYRINGE (J1650) SC SCH (08:27)
[2018-07-21] MEDS: QUEtiapine FUMARATE 50 MG TAB PO SCH ×2 (08:27→21:49)
[2018-07-21] MEDS: SENOKOT S TAB PO SCH ×2 (09:00→21:49)
[2018-07-21] MEDS ORDERED: KCL 20MEQ IN 0.45NS 1000ML 1,000 ML IV SCH (09:00)
[2018-07-21 11:23] LABS: CK-MB VALUE MASS < 1.0 NG/ML (<3.6); CPK CREATINE PHOSPHOKINASE 33 U/L (39-308); MB/CK RELATIVE INDEX 3.03 (< OR =4); TROPONIN I < 0.02 NG/ML (< 0.10)
--- NOTE | 2018-07-21 13:38 | REP ---
CT Head without contrast HISTORY: Altered mental status COMPARISON: 07/20/2008 An area of decreased attenuation is present in the right frontal lobe. There is dilatation of the overlying cortical sulci. This represents encephalomalacia. Areas of decreased attenuation are present in the periventricular white matter. This represents small-vessel ischemic disease. There is no intraparenchymal hemorrhage, acute infarct, mass or midline shift. The ventricular system and cortical sulci as well as subarachnoid space in the posterior fossa are dilated consistent with mild volume loss. Cavum septi pellucidi and vergae are present. There is no extra cerebral collection. There is no fracture. The visualized sinuses are clear. IMPRESSION: 1. Right frontal lobe encephalomalacia. 2. Small vessel ischemic disease. 3. Mild volume loss. Electronically Signed by Gerardo Swenson MD 07/21/2018 01:29 P
[2018-07-21] MEDS: LORazepam 0.5 MG TAB PO PRN (14:41)
[2018-07-21] MEDS ORDERED: HALOPERIDOL 5 MG/ML VIAL (J1630) IM PRN (15:00)
[2018-07-21] MEDS ORDERED: LORazepam 2 MG/ML VIAL (J2060) IM PRN (15:00)
[2018-07-21] MEDS ORDERED: HALOPERIDOL 5 MG/ML VIAL (J1630) As Ordered ONE (15:06)
[2018-07-21] MEDS ORDERED: LORazepam 2 MG/ML VIAL (J2060) As Ordered ONE (15:07)
--- NOTE | 2018-07-21 15:24 | NUR ---
Pt seen this date for swallow evaluation. Pt presents with mild oral phase dysphagia. Level 2 solids (no toast), thin liquids w/straw. Pt must be assisted throughout entire meal. Meds crushed in puree assist. Please hold foods in front of Pt and announce what it is for each bite. Provide processing time. If Pt does not open his mouth. Tap his lip gently. Addendum: 07/23/18 at 1526 by GIACOMO OCONNELL [facility] SP Amended: Links added.
[2018-07-21 18:10] VITALS: BP 94/56
--- NOTE | 2018-07-21 19:25 | ECGEPIP ---
Stationary ECG Study [facility] - ED Test Date: 2018-07-20 Pat Name: CLARISA MOORE Department: Room: - Gender: M Sap Security Architect: fernie : [id number] Requested By: Kimberley Mendieta Order Number: [id number] Reading MD: Marily Rebolledo Measurements Intervals [place] Rate: 92 P: PA: 0 QRS: -72 QRSD: 109 T: 47 QT: 371 QTc: 460 Interpretive Statements ATRIAL FIBRILLATION LOW QRS VOLTAGE IN EXTREMITY LEADS ANTERIOR AND INFERIOR MYOCARDIAL INFARCTION, PROBABLY OLD NONSPECIFIC ST T WAVE CHANGES CW 06/13/18 RATE DECREASED NEW INFERIOR WALL MN AGE UNDETERMINED NONSPECIFIC ST T WAVE CHANGES Electronically Signed On 07-21-2018 19:25:35 EST by Marily Rebolledo
[2018-07-21 20:16] LABS: BLOOD UREA NITROGEN 14 MG/DL (7-18); CARBON DIOXIDE LEVEL 23 MEQ/L (21-32); CHLORIDE LEVEL 114 MEQ/L (98-107); CREATININE FOR GFR 0.76 MG/DL (0.70-1.30); GLOMERULAR FILTRATION RATE > 60.0 (>35); GLUCOSE, FASTING 76 MG/DL (70-100); POTASSIUM SERUM 3.9 MEQ/L (3.5-5.1); SODIUM LEVEL 144 MEQ/L (136-145)
--- NOTE | 2018-07-21 21:16 | IPN ---
DATE: 07/21/2018 Patient admitted yesterday for agitation. Overnight, the patient had a one-to-one sitter, has been comfortable, in no acute distress. Patient does not know where he is, is a very poor historian. Denies any chest pain, pressure, or discomfort. The patient has a M[place]ia catheter that is chronic. Attempted to get an electroencephalogram (EEG) today, but the patient was combative, agitated, and subsequently pulled out his IV. Given Haldol and Ativan. VITAL SIGNS: Temperature 97.1, pulse 72, respirations 16, blood pressure 94/56, pulse oximetry 98% on room air. LABORATORY DATA: WBC 4, hemoglobin and hematocrit 10.7 over 34.2, platelets 119. Chemistry: Sodium 148, potassium 3.6, chloride 117, bicarbonate 24, BUN 19, creatinine 0.9. Cardiac enzymes negative times two. TSH 0.918. PHYSICAL EXAMINATION: GENERAL: Patient alert, comfortable, in no acute distress. NECK: Supple. No jugular venous distention (JVD). PULMONARY: Bilateral clear. CARDIAC: Regular, S1, S2. ABDOMEN: Soft, nontender. Colostomy bag in place. EXTREMITIES: No edema. NEUROLOGIC: Patient awake, able to move all four extremities. Alert and oriented times zero. ASSESSMENT AND PLAN: This is an 83-year-old male patient with underlying medical history of coronary artery disease, status post percutaneous coronary intervention (PCI) February 2018, dementia, depression, atrial fibrillation - not on anticoagulation, deep vein thrombosis (DVT) with an inferior vena cava (IVC) filter, colon cancer, status post colectomy with colostomy bag placement from 1994, also with prostate cancer and extensive urological history with stenting and transurethral resection of the prostate (TURP). Patient was brought here with agitation, combative behavior and poor oral intake. PROBLEMS: 1. Altered mental status, possibly due to acute metabolic encephalopathy versus delirium, versus worsening dementia. Urine culture has been negative; therefore, antibiotics have been discontinued. Patient has no leukocytosis, no lactic acidosis. Repeat CT scan has been appreciated showing chronic changes. Attempted to get EEG, but the patient did not tolerate it. Will consider re-attempting the procedure. One-to-one sitter. Supportive care. Likely secondary to worsening dementia and delirium. 2. Alzheimer's dementia, intermittent aggressive behavior. Continue current medication. Patient with 24/7 care at home. 3. Spiculated lung lesion. Need outpatient workup. 4. Coronary artery disease. Status post PCI. Continue Plavix and statin. 5. Dementia. Supportive care. Continue current medication. 6. Anxiety/depression. Continue current medication. 7. Hypertension. Patient with borderline hypertension at this time. Holding blood pressure medication. 8. Dehydration, poor oral intake, failure to thrive. Supportive care. Continue to monitor. IV fluids have been ordered. 9. Hypernatremia. Likely secondary to dehydration. IV fluids. 10. Vascular access. A peripherally inserted central catheter (PICC) line has been ordered. 11. History of atrial fibrillation. Not a candidate for anticoagulation due to fall risk. Continue Coreg. 12. History of colon cancer with colostomy and history of prostate cancer with prostatectomy and TURPs. Outpatient followup. 13. DVT prophylaxis. Lovenox subcu. DISPOSITION: Pending clinical improvement. Will need to get a PICC line for additional IV fluids. Cardiac enzymes negative times two. Poor long-term prognosis.
[2018-07-21] MEDS: ATORVASTATIN 20 MG TAB PO SCH (21:49)
[2018-07-21] MEDS: SERTRALINE 100 MG TAB PO SCH (21:50)
[2018-07-21 22:00] VITALS: BP 97/64
[2018-07-22 06:00] VITALS: BP 110/61
[2018-07-22 06:14] LABS: HEMATOCRIT 34.9 % (42.0-52.0); HEMOGLOBIN 10.9 g/dl (13.5-17.5); MEAN CORPUSCULAR HEMOGLOBIN 27.9 pg (27.0-33.0); MEAN CORPUSCULAR HGB CONC 31.2 g/dl (32.0-36.5); MEAN CORPUSCULAR VOLUME 89.5 fl (80.0-96.0); PLATELET COUNT, AUTOMATED 117 10^3/uL (150-450); WHITE BLOOD COUNT 3.5 10^3/uL (4.0-10.0)
[2018-07-22 06:37] LABS: BLOOD UREA NITROGEN 12 MG/DL (7-18); CALCIUM LEVEL 8.4 MG/DL (8.8-10.2); CARBON DIOXIDE LEVEL 25 MEQ/L (21-32); CHLORIDE LEVEL 111 MEQ/L (98-107); CREATININE FOR GFR 0.76 MG/DL (0.70-1.30); GLOMERULAR FILTRATION RATE > 60.0 (>35); GLUCOSE, FASTING 82 MG/DL (70-100); MAGNESIUM LEVEL 1.8 MG/DL (1.8-2.4); POTASSIUM SERUM 3.5 MEQ/L (3.5-5.1); SODIUM LEVEL 142 MEQ/L (136-145)
[2018-07-22] MEDS ORDERED: MAG SULF 1GM/100ML (MAG RUN) 1 GM in APPROPRIATE DILUENT 1 EA IV SCH (07:45)
[2018-07-22] MEDS: CLOPIDOGREL 75 MG TAB PO SCH (07:52)
[2018-07-22] MEDS: QUEtiapine FUMARATE 50 MG TAB PO SCH ×2 (07:52→20:20)
[2018-07-22] MEDS: MEMANTINE 5MG TABLET (NAMENDA) PO SCH ×2 (07:53→20:20)
[2018-07-22] MEDS: SENOKOT S TAB PO SCH ×2 (07:53→20:20)
[2018-07-22] MEDS: ENOXAPARIN 40 MG/0.4 ML SYRINGE (J1650) SC SCH (07:53)
[2018-07-22] MEDS ORDERED: POTASSIUM CHLORIDE 10 MEQ SR TABLET PO ONE (08:00)
[2018-07-22] MEDS: LORazepam 0.5 MG TAB PO PRN (13:22)
[2018-07-22] MEDS ORDERED: LIDOCAINE 1% MDV 20ML VIAL As Ordered ONE (13:42)
[2018-07-22 14:00] VITALS: BP 96/54
--- NOTE | 2018-07-22 18:39 | IPNPDOC ---
Text Note Date of Service The patient was seen on 07/22/18. NOTE Patient agitated yesterday afternoon. but much improved today. tolerated diet. Denied chest pain. PHYSICAL EXAMINATION: GENERAL: Patient alert, comfortable, in no acute distress. NECK: Supple. No jugular venous distention (JVD). PULMONARY: Bilateral clear. CARDIAC: Regular, S1, S2. ABDOMEN: Soft, nontender. Colostomy bag in place. EXTREMITIES: No edema. NEUROLOGIC: Patient awake, able to move all four extremities. Alert and oriented times zero. ASSESSMENT AND PLAN: This is an 83-year-old male patient with underlying medical history of coronary artery disease, status post percutaneous coronary intervention (PCI) February 2018, dementia, depression, atrial fibrillation - not on anticoagulation, deep vein thrombosis (DVT) with an inferior vena cava (IVC) filter, colon cancer, status post colectomy with colostomy bag placement from 1994, also with prostate cancer and extensive urological history with stenting and transurethral resection of the prostate (TURP). Patient was brought here with agitation, combative behavior and poor oral intake. PROBLEMS: 1. Altered mental status, possibly due to acute metabolic encephalopathy versus delirium, versus worsening dementia. Urine culture has been negative; therefore, antibiotics have been discontinued. Patient has no leukocytosis, no lactic acidosis. Repeat CT head has been appreciated showing chronic changes. Attempted to get EEG, but the patient did not tolerate it. One-to-one sitter. Supportive care. Likely secondary to worsening dementia and delirium. 2. Alzheimer's dementia, intermittent aggressive behavior. Continue current medication. Patient with 24/7 care at home. Poor PO intake. d/w family option of hospice, MANAGER OF HEALTH vs Peg tube. family undecided. risk and benefit explained 3. Spiculated lung lesion. Need outpatient workup. 4. Coronary artery disease. Status post PCI. Continue Plavix and statin. 5. Dementia. Supportive care. Continue current medication. 6. Anxiety/depression. Continue current medication. 7. Hypertension. Patient with borderline hypertension at this time. Holding blood pressure medication. 8. Dehydration, poor oral intake, failure to thrive. Supportive care. Continue to monitor.repeat lab. hold fluid. family meeting held 9. Hypernatremia. Likely secondary to dehydration. IV fluids given with improvement 10. Vascular access. A peripherally inserted central catheter (PICC) line 11. History of atrial fibrillation. Not a candidate for anticoagulation due to fall risk. Continue Coreg. 12. History of colon cancer with colostomy and history of prostate cancer with prostatectomy and TURPs. Outpatient followup. 13. DVT prophylaxis. Lovenox subcu. DISPOSITION: Pending clinical improvement. repeat lab, off fluid. Poor long-term prognosis. d/w family options for MANAGER OF HEALTH and hospice vs PEG, pending family decision VS,Fishbone, I+O VS, Fishbone, I+O Laboratory Tests 07/21/18 19:33 Calcium Level 8.0 L 07/22/18 05:48 Calcium Level 8.4 L, Red Blood Count 3.90 L, Mean Corpuscular Volume 89.5, Mean Corpuscular Hemoglobin 27.9, Mean Corpuscular Hemoglobin Concent 31.2 L, Red Cell Distribution Width 16.3 H Vital Signs Date Time Temp Pulse Resp B/P (MAP) Pulse Ox O2 Delivery O2 Flow Rate FiO2 07/22/18 14:00 96.2 89 17 96/54 (68) 98 Room Air I&O- Last 24 Hours up to 6 AM 07/22/18 06:00 Intake Total 1560 ml Output Total 1175 ml Balance 385 ml ALEX FERNANDEZ MD Jul 22, 2018 18:39
--- NOTE | 2018-07-22 19:41 | REP ---
Procedure: Mid line catheter insertion with Rocio-Bijal The procedure was performed under the direct supervision of Dr. Chatman. The risks and benefits of the procedure were explained and informed consent was obtained by the healthcare proxy. The right basilic vein was localized using ultrasound guidance. The skin was prepped and draped in a sterile fashion. 1% lidocaine was used as a local anesthetic. Using ultrasound guidance the basilic vein was cannulated and a 0.018 guidewire was inserted . The needle was removed and a 5.5 Serbian dilator and peel-away sheath was inserted over the guide wire. A 5.5 Serbian dual lumen catheter was cut to length of 16.5 cm. The dilator was removed and the catheter was inserted over the guide wire. The peel-away sheath was removed and the catheter was flushed with heparinized saline as per Hospital protocol. The catheter was affixed to the skin and a sterile dressing was applied. The patient tolerated the procedure well and there were no immediate complications. Reviewed by BHARATH Zavala 07/22/2018 03:18 P Electronically Signed by Akira Chatman MD 07/22/2018 07:31 P
[2018-07-22] MEDS: ATORVASTATIN 20 MG TAB PO SCH (20:20)
[2018-07-22] MEDS: SERTRALINE 100 MG TAB PO SCH (20:21)
[2018-07-22] MEDS ORDERED: SODIUM CHLORIDE 0.9% INJ 10 ML SYR IV PRN (20:45)
[2018-07-22 22:00] VITALS: BP 112/69
[2018-07-23 05:58] LABS: HEMATOCRIT 33.4 % (42.0-52.0); HEMOGLOBIN 10.7 g/dl (13.5-17.5); MEAN CORPUSCULAR HEMOGLOBIN 28.4 pg (27.0-33.0); MEAN CORPUSCULAR VOLUME 88.6 fl (80.0-96.0); PLATELET COUNT, AUTOMATED 119 10^3/uL (150-450); RED BLOOD COUNT 3.77 10^6/uL (4.30-6.10); WHITE BLOOD COUNT 3.5 10^3/uL (4.0-10.0)
[2018-07-23 06:00] VITALS: BP 100/67
[2018-07-23 06:21] LABS: BLOOD UREA NITROGEN 12 MG/DL (7-18); CALCIUM LEVEL 8.3 MG/DL (8.8-10.2); CARBON DIOXIDE LEVEL 24 MEQ/L (21-32); CHLORIDE LEVEL 111 MEQ/L (98-107); CREATININE FOR GFR 0.86 MG/DL (0.70-1.30); GLOMERULAR FILTRATION RATE > 60.0 (>35); GLUCOSE, FASTING 86 MG/DL (70-100); MAGNESIUM LEVEL 1.8 MG/DL (1.8-2.4); SODIUM LEVEL 144 MEQ/L (136-145)
[2018-07-23] MEDS: QUEtiapine FUMARATE 50 MG TAB PO SCH ×2 (08:13→21:08)
[2018-07-23] MEDS: CLOPIDOGREL 75 MG TAB PO SCH (08:13)
[2018-07-23] MEDS: MEMANTINE 5MG TABLET (NAMENDA) PO SCH ×2 (08:13→21:08)
[2018-07-23] MEDS: ENOXAPARIN 40 MG/0.4 ML SYRINGE (J1650) SC SCH (08:13)
[2018-07-23] MEDS: SENOKOT S TAB PO SCH ×2 (08:13→21:08)
[2018-07-23] MEDS: SODIUM CHLORIDE 0.9% INJ 10 ML SYR IV SCH ×2 (08:14→21:09)
[2018-07-23] MEDS ORDERED: MORPHINE 10MG/0.5ML ORAL CONCENTRATE SOLUTION U/D SL PRN (12:45)
[2018-07-23] MEDS ORDERED: HYOSCYAMINE SULFATE 0.125 MG SUBL TABLET PO PRN (12:45)
[2018-07-23] MEDS ORDERED: SCOPOLAMINE 1MG TRANSDERMAL PATCH TOP PRN (12:45)
--- NOTE | 2018-07-23 18:50 | IPNPDOC ---
Text Note Date of Service The patient was seen on 07/23/18. NOTE No new complaints. Poor po intake. Denied chest pain. poor historian PHYSICAL EXAMINATION: GENERAL: Patient alert, comfortable, in no acute distress. NECK: Supple. No jugular venous distention (JVD). PULMONARY: Bilateral clear. CARDIAC: Regular, S1, S2. ABDOMEN: Soft, nontender. Colostomy bag in place. EXTREMITIES: No edema. NEUROLOGIC: Patient awake, able to move all four extremities. Alert and oriented times zero. ASSESSMENT AND PLAN: This is an 83-year-old male patient with underlying medical history of coronary artery disease, status post percutaneous coronary intervention (PCI) February 2018, dementia, depression, atrial fibrillation - not on anticoagulation, deep vein thrombosis (DVT) with an inferior vena cava (IVC) filter, colon cancer, status post colectomy with colostomy bag placement from 1994, also with prostate cancer and extensive urological history with stenting and transurethral resection of the prostate (TURP). Patient was brought here with agitation, combative behavior and poor oral intake. PROBLEMS: 1. Altered mental status, possibly due to acute metabolic encephalopathy versus delirium, versus worsening dementia. Urine culture has been negative; therefore, antibiotics have been discontinued. Patient has no leukocytosis, no lactic acidosis. Repeat CT head has been appreciated showing chronic changes. Attempted to get EEG, but the patient did not tolerate it. One-to-one sitter. Supportive care. Likely secondary to worsening dementia and delirium. [employer] 2. Alzheimer's dementia, intermittent aggressive behavior. Continue current medication. Patient with 24/7 care at home. Poor PO intake. d/w family option of hospice, [employer] , comfort feeding 3. Spiculated lung lesion. Need outpatient workup. 4. Coronary artery disease. Status post PCI. [employer] 5. Dementia. Supportive care. Continue current medication. 6. Anxiety/depression. Continue current medication. 7. Hypertension. Patient with borderline hypertension at this time. Holding blood pressure medication. 8. Dehydration, poor oral intake, failure to thrive. Supportive care. [employer], comfort feeding 9. Hypernatremia. Likely secondary to dehydration. IV fluids given with imp rovement, currently [employer] 10. Vascular access. A peripherally inserted central catheter (PICC) line 11. History of atrial fibrillation. Not a candidate for anticoagulation due to fall risk. Continue Coreg. 12. History of colon cancer with colostomy and history of prostate cancer with prostatectomy and TURPs. [employer] 13. DVT prophylaxis. DC lovenox, patient [employer], teds and SCD DISPOSITION: [employer], home with hospice ACP 30 min, family meeting help. risk and benefit of feeding tube explained. informed for prognosis. Paitent made [employer]. MOLST form done. Hospice consulted. time spent 30 min VS,Fishbone, I+O VS, Fishbone, I+O Laboratory Tests 07/23/18 05:44 Red Blood Count 3.77 L, Mean Corpuscular Volume 88.6, Mean Corpuscular Hemoglobin 28.4, Mean Corpuscular Hemoglobin Concent 32.0, Red Cell Distribution Width 16.2 H, Calcium Level 8.3 L Vital Signs Date Time Temp Pulse Resp B/P (MAP) Pulse Ox O2 Delivery O2 Flow Rate FiO2 07/23/18 06:00 97.1 83 18 100/67 (78) 98 07/22/18 14:00 Room Air I&O- Last 24 Hours up to 6 AM 07/23/18 06:00 Intake Total 1710 ml Output Total 800 ml Balance 910 ml ALEX FERNANDEZ MD Jul 23, 2018 18:50
[2018-07-23] MEDS: SERTRALINE 100 MG TAB PO SCH (21:08)
[2018-07-23] MEDS: LORazepam 1 MG TAB PO PRN (22:43)
[2018-07-24] MEDS: QUEtiapine FUMARATE 50 MG TAB PO SCH ×2 (08:41→21:12)
[2018-07-24] MEDS: SENOKOT S TAB PO SCH ×2 (08:41→21:12)
[2018-07-24] MEDS: SODIUM CHLORIDE 0.9% INJ 10 ML SYR IV SCH ×2 (08:41→21:13)
[2018-07-24] MEDS: MEMANTINE 5MG TABLET (NAMENDA) PO SCH ×2 (08:41→21:12)
[2018-07-24] MEDS: LORazepam 1 MG TAB PO PRN (15:34)
--- NOTE | 2018-07-24 20:23 | IPNPDOC ---
Text Note Date of Service The patient was seen on 07/24/18. NOTE No new complaints. Poor po intake. Denied chest pain. poor historian PHYSICAL EXAMINATION: GENERAL: Patient alert, comfortable, in no acute distress. NECK: Supple. No jugular venous distention (JVD). PULMONARY: Bilateral clear. CARDIAC: Regular, S1, S2. ABDOMEN: Soft, nontender. Colostomy bag in place. EXTREMITIES: No edema. NEUROLOGIC: Patient awake, able to move all four extremities. Alert and oriented times zero. ASSESSMENT AND PLAN: This is an 83-year-old male patient with underlying medical history of coronary artery disease, status post percutaneous coronary intervention (PCI) February 2018, dementia, depression, atrial fibrillation - not on anticoagulation, deep vein thrombosis (DVT) with an inferior vena cava (IVC) filter, colon cancer, status post colectomy with colostomy bag placement from 1994, also with prostate cancer and extensive urological history with stenting and transurethral resection of the prostate (TURP). Patient was brought here with agitation, combative behavior and poor oral intake. PROBLEMS: 1. Altered mental status, possibly due to acute metabolic encephalopathy versus delirium, versus worsening dementia. Urine culture has been negative; therefore, antibiotics have been discontinued. Patient has no leukocytosis, no lactic acidosis. Repeat CT head has been appreciated showing chronic changes. Attempted to get EEG, but the patient did not tolerate it. One-to-one sitter. Supportive care. Likely secondary to worsening dementia and delirium. [employer] 2. Alzheimer's dementia, intermittent aggressive behavior. Continue current medication. Patient with 24/7 care at home. Poor PO intake. d/w family option of hospice, [employer]EM[employer] , comfort feeding 3. Spiculated lung lesion. [employer] 4. Coronary artery disease. Status post PCI. [employer] 5. Dementia. Supportive care. 6. Anxiety/depression. Continue current medication. 7. Hypertension. Patient with borderline hypertension at this time. Holding blood pressure medication. 8. Dehydration, poor oral intake, failure to thrive. Supportive care. [employer]EM[employer], comfort feeding 9. Hypernatremia. Likely secondary to dehydration. IV fluids given with improvement, currently [employer] 10. History of atrial fibrillation. Not a candidate for anticoagulation due to fall risk. [employer] 12. History of colon cancer with colostomy and history of prostate cancer with prostatectomy and TURPs. [employer] 13. DVT prophylaxis. DC lovenox, patient [employer]EM[employer], teds and SCD DISPOSITION: [employer], home with hospice VS,Fishbone, I+O VS, Fishbone, I+O Vital Signs Date Time Temp Pulse Resp B/P (MAP) Pulse Ox O2 Delivery O2 Flow Rate FiO2 07/23/18 06:00 97.1 83 18 100/67 (78) 98 07/22/18 14:00 Room Air I&O- Last 24 Hours up to 6 AM 07/24/18 06:00 Intake Total 1000 ml Output Total 975 ml Balance 25 ml ALEX FERNANDEZ MD Jul 24, 2018 20:23
[2018-07-24] MEDS: SERTRALINE 100 MG TAB PO SCH (21:12)
[2018-07-25] MEDS: SODIUM CHLORIDE 0.9% INJ 10 ML SYR IV SCH (09:00)
[2018-07-25] MEDS: MEMANTINE 5MG TABLET (NAMENDA) PO SCH (09:13)
[2018-07-25] MEDS: QUEtiapine FUMARATE 50 MG TAB PO SCH (09:13)
[2018-07-25] MEDS: SENOKOT S TAB PO SCH (09:13)
[2018-07-25] MEDS ORDERED: SENN8.6T7 PO (10:11)
[2018-07-25] MEDS ORDERED: MORP20SO3 PO (10:11)
[2018-07-25] MEDS ORDERED: LORA0.5T11 PO (10:11)
[2018-07-25] MEDS ORDERED: HYOS125TA PO (10:11)
--- NOTE | 2018-07-25 20:14 | DSES ---
DATE OF ADMISSION: 07/20/2018 DATE OF DISCHARGE: 07/25/2018 PRIMARY CARE PROVIDER: Dr. Daniels FINAL DIAGNOSES: 1. Dehydration. 2. Metabolic encephalopathy. 3. Worsening Alzheimer's dementia. 4. Delirium. 5. Spiculated lung lesion. 6. History of coronary arterial disease. 7. Anxiety. 8. Depression. 9. History of hypertension. 10. Hypernatremia secondary to dehydration. 11. History of atrial fibrillation. 12. History of colon cancer with colostomy. 13. History of prostate cancer. HISTORY OF PRESENT ILLNESS: This is an 83-year-old male patient with underlying medical history of advanced dementia, recurrent urinary tract infection (UTI)s, coronary artery disease, status post PCI, who presented to the emergency room with decreased oral intake according to the family, as well as increased aggressive behavior and poor oral intake. The patient has had similar symptoms before and was admitted on 06/09/2018 and found to have a urinary tract infection (UTI) that was treated for Klebsiella UTI. Completed antibiotic course. The family states that over the last week or so the patient has a progressively worsening appetite and has similar symptoms. Subsequently, the patient was brought to the emergency room. In the emergency room, the patient's UA was obtained. IV Rocephin was empirically started. IV fluids were also given. The patient was also found to be hypernatremic. HOSPITAL COURSE: The patient was admitted to the hospital and IV fluids were given. Electrolytes were followed. Speech and swallow was done. The patient was encouraged for oral feeding. Workup, including CT scan was done. The patient did not tolerate electroencephalogram (EEG). The patient's mental status has worsened compared to the patient's baseline. It was felt that it was most likely secondary to worsening dementia. Given the patient has gradually declining over the past couple of months, the case was discussed with family. At this point, it is pretty certain that the patient will not be able to consume enough hydration or nutrition to be sustainable for life. Option of tube feeding and comfort measures only have been discussed. Risks and benefits have been explained with the family. The family has elected to make the patient comfort measures only with hospice consultation. Subsequently, the patient is discharged home with hospice. PHYSICAL EXAMINATION: GENERAL: The patient is alert. Follows simple commands. In no acute distress. HEENT: Normocephalic, atraumatic. PULMONARY: Bilaterally clear. CARDIAC: Regular. S1, S2. ABDOMEN: Soft, nontender. Ostomy bag in place. EXTREMITIES: No edema in bilateral lower extremities. DISCHARGE MEDICATIONS: - Senna S 8.6/50 mg two tablets at night - hyoscyamine 0.125 mg by mouth every 4 hours as needed for terminal secretions - Ativan 0.5 mg by mouth every 4 hours as needed - Roxanol 100 mg/5 mL, 0.25 to 1 mL by mouth every 2 hours as needed - Ensure supplementation - amantadine 10 mg by mouth twice a day - Lipitor 40 mg by mouth at night - Seroquel 50 mg by mouth twice a day - sertraline 100 mg by mouth at night DISCHARGE INSTRUCTIONS: Please see primary care provider in 7 days. Further care as per hospice providers. Comfort feeding as tolerated. Aspiration precautions. Oral hydration. Please return if symptoms worsen. DISCHARGE MEDICATIONS: - Senna S
== END 2018-07-25 11:00 | disposition hospice, home (50) | DRG 640 ==
LOC: M ED 10:45 → EDSEX 10:45 → EDBD 10:45 → M ED INP 13:10 → M MSPAV 15:21
PROVIDERS: ADMIT Internal Medicine; ATTEND Hospitalist
PROC: 05HB33Z Insertion of Infusion Device into Right Basilic Vein, Percutaneous Approach (ICD-10-PCS; principal; 2018-07-22)
DX: E86.0 Dehydration (principal); G93.41 Metabolic encephalopathy; F02.81 Dementia in other diseases classified elsewhere, unspecified severity, with behavioral disturbance; E87.0 Hyperosmolality and hypernatremia; I25.10 Atherosclerotic heart disease of native coronary artery without angina pectoris; R91.8 Other nonspecific abnormal finding of lung field; G30.9 Alzheimer's disease, unspecified; I48.91 Unspecified atrial fibrillation; F32.9 Major depressive disorder, single episode, unspecified; Z51.5 Encounter for palliative care; Z66 Do not resuscitate; Z79.02 Long term (current) use of antithrombotics/antiplatelets; Z79.899 Other long term (current) drug therapy; Z93.3 Colostomy status; Z85.46 Personal history of malignant neoplasm of prostate; Z95.5 Presence of coronary angioplasty implant and graft; Z95.828 Presence of other vascular implants and grafts; Z86.718 Personal history of other venous thrombosis and embolism; Z85.038 Personal history of other malignant neoplasm of large intestine

== ENCOUNTER → 2019-03-19 | Outpatient (REF) | payer MEDICARE, OTHER ==
[~2019-03-19] MED LIST changes: -/ATOR40TA; -/ATOR40TA PO; -/TAMS4CA; -/WARF25TA; -/WARF5TA; -ASPI1TAB PO; +ASPI81TA26 PO; +COUM1TAB17; +COUM1TAB18; +FLOM0.4C39; +HYOS125TA PO; +LIPI1TAB2; +LIPI1TAB2 PO; +MORP20SO3 PO; +NITR100C2 PO; +SENN1TAB41 PO
== END ==
LOC: M LAB REF 15:21
PROVIDERS: ATTEND Physician Assistant
DX: R91.8 Other nonspecific abnormal finding of lung field (principal); Z85.038 Personal history of other malignant neoplasm of large intestine; Z85.46 Personal history of malignant neoplasm of prostate; J44.9 Chronic obstructive pulmonary disease, unspecified; I10 Essential (primary) hypertension